=== PATIENT | female | born 2000 | race Caucasian/White ===

== ENCOUNTER 2022-07-02 02:15 | Emergency (ER) | payer MEDICAID, SELFPAY ==
[2022-07-02 02:20] VITALS: BP 143/56; PULSE 118; RESP 17; TEMP 36.9; O2SAT 98; BMI 29.7
[2022-07-02 02:23] VITALS: BMI 25.0
--- NOTE | 2022-07-02 02:25 | CT_ITS ---
PROCEDURE INFORMATION: Exam: CT Abdomen And Pelvis With Contrast Exam date and time: 07/02/2022 3:29 AM Age: 22 years old Clinical indication: Fever and nausea and vomiting; Abdominal pain; Localized; Right; Additional info: R abd pain w/ fever, nausea and vomiting TECHNIQUE: Imaging protocol: Computed tomography of the abdomen and pelvis with contrast. Radiation optimization: All CT scans at this facility use at least one of these dose optimization techniques: automated exposure control; mA and/or kV adjustment per patient size (includes targeted exams where dose is matched to clinical indication); or iterative reconstruction. Contrast material: ISOVUE; Contrast volume: 75 ml; Contrast route: IV; COMPARISON: No relevant prior studies available. FINDINGS: Liver: Normal. No mass. Gallbladder and bile ducts: Normal. No calcified stones. No ductal dilation. Pancreas: Normal. No ductal dilation. Spleen: Normal. No splenomegaly. Adrenal glands: Normal. No mass. Kidneys and ureters: There is patchy enhancement of the right kidney, this is seen most prominently anteriorly in the lower pole. Some perinephric edema is noted. There is moderate right-sided hydronephrosis and enhancement of the urothelium is seen in the collecting system and proximal ureter. No stones are identified. Stomach and bowel: Unremarkable. No obstruction. No mucosal thickening. Appendix: No evidence of appendicitis. Intraperitoneal space: Unremarkable. No free air. No significant fluid collection. Vasculature: Unremarkable. No abdominal aortic aneurysm. Lymph nodes: Unremarkable. No enlarged lymph nodes. Urinary bladder: Unremarkable as visualized. Reproductive: Unremarkable as visualized. Bones/joints: Unremarkable. No acute fracture. Soft tissues: Unremarkable. IMPRESSION: Patchy right renal enhancement with hydronephrosis and urothelial enhancement all suggestive of pyelonephritis. No renal stones identified.
[2022-07-02 02:31] VITALS: BP 120/76; PULSE 113; O2SAT 98
--- NOTE | 2022-07-02 02:45 | PC.NURSE ---
PT DENIES SMOKING, DRUG ABUSE, ETOH USE. PT DENIES HAVING ANY MEDICAL PROBLEMS OR ANY SURG. PT REPORTS ONE NORMAL THAT RESULTED IN A LIVE .
[2022-07-02 02:50] LABS: Coronavirus 19, PCR Not Detected (NotDetected); Influenza A, PCR Not Detected (NotDetected); Influenza B, PCR Not Detected (NotDetected); Microscopic, Urine URINE MICROSCOPIC (MICROSCOPIC)
[2022-07-02 02:58] LABS: Chloride 104 mmol/L (98-107); Potassium 3.3 mmoL/L (3.5-5.1); Sodium 138 mmol/L (136-145)
[2022-07-02 02:59] LABS: Amylase 51 U/L (30-110); Basophils # 0.1 K/mm3 (0-0.2); Basophils % 0.6 % (0.1-2.0); Eosinophils # 0.2 K/mm3 (0.0-0.4); Eosinophils % 1.1 % (0.1-12.0); Hematocrit 40.5 % (37.0-47.0); Hemoglobin 12.7 g/dL (12.2-16.2); Lymphocytes # 2.8 K/mm3 (0.7-4.5); Mean Corpuscular HGB Conc 31.4 g/dL (31.8-35.4); Mean Corpuscular Hemoglobin 27.6 pg (27.0-31.2); Mean Platelet Volume 8.2 fl (7.4-10.4); Monocytes # 1.2 K/mm3 (0.1-1.0); Monocytes % 6.2 % (1.7-9.3); Neutrophils # 15.3 K/mm3 (1.8-7.8); Neutrophils % 78.1 % (37.0-80.0); Platelet Count 313 K/mm3 (142-424); Red Cell Distribution Width 14.9 % (11.5-17.5); White Blood Count 19.6 K/mm3 (4.5-13.0)
[2022-07-02 03:00] VITALS: BP 113/72; PULSE 98; O2SAT 99
[2022-07-02 03:01] LABS: Alanine Aminotransferase 27 U/L (12-78); Albumin Level 4.2 g/dl (3.5-5.0); Albumin/Globulin Ratio 1.2 (1.1-1.8); Alkaline Phosphatase 107 U/L (38-126); Anion Gap 13.3 mEq/L (5-15); Aspartate Amino Transferase 31 U/L (14-36); Bilirubin,Total 0.3 mg/dl (0.2-1.3); Blood Urea Nitrogen 9 mg/dl (7-17); Calcium 9.2 mg/dl (8.4-10.2); Carbon Dioxide 24 mmol/L (22.0-30.0); Creatinine Clearance Estimated 161 mL/min (50-200); Estimated Glomerular Filt Rate 127 ml/min (>60); GFR (African American) 154 ML/MIN (>60); Globulin 3.5 g/dL (1.3-3.2); Glucose 132 mg/dl (74-100); Lactic Acid 1.4 mmol/L (0.7-2.1); Lipase 29 U/L (23-300); Total Protein,Serum 7.7 g/dl (6.3-8.2)
[2022-07-02 03:04] LABS: MANUAL DIFFERENTIAL MANUAL DIFFERENTIAL (MANUAL DIFF)
[2022-07-02 03:09] LABS: Bilirubin,Urine Negative (Negative); Blood, Urine TRACE-I (Negative); Color,Urine YELLOW (Yellow); Glucose,Urine (UA) Negative (Negative); Ketones,Urine Negative (Negative); Leukocyte Esterase,Urine 3+ (Negative); Nitrate,Urine Negative (Negative); Protein,Urine Negative (Negative)
[2022-07-02 03:20] LABS: C-Reactive Protein 366.2 mg/L (0-4)
[2022-07-02 03:21] LABS: Appearance,Urine Cloudy (Clear)
[2022-07-02 03:22] LABS: Urine Pregnancy, HCG Qual. Negative (Negative)
--- NOTE | 2022-07-02 03:28 | PC.NURSE ---
test has resulted and radiology notified
[2022-07-02 03:30] VITALS: BP 106/58; PULSE 93; O2SAT 100
[2022-07-02 03:32] LABS: Bacteria,Urine 3+ /lpf; WBC,Urine TNTC #/hpf (0-3)
[2022-07-02 03:44] LABS: Erythrocyte Sedimentation Rate 44 mm/hr (0-20)
[2022-07-02 03:48] LABS: Eosinophils % 2 % (0-3); Lymphocytes % 13 % (10-50); Monocytes % 5 % (2-9); Neutrophils % 80 % (42-76); Platelet Estimate Normal; RBC Morphology Normal; Total Cells Counted 100
[2022-07-02 04:01] VITALS: BP 119/88; PULSE 81; O2SAT 98
--- NOTE | 2022-07-02 04:51 | HMH.EDABDPAI ---
Discharge Plan Disposition Patient Disposition: Home, Self-Care Prescriptions Prescriptions: New ondansetron HCl 4 mg Tablet 4 mg PO Q8H PRN (Reason: Nausea) Qty: 12 0RF levofloxacin 500 mg tablet 500 mg PO DAILY Qty: 7 0RF Referrals Follow up/Referrals: Provider,Referral, MD [Primary Care Provider] - See instructions Clinical Impressions Clinical Impression: UTI (urinary tract infection), Pyelonephritis, SIRS (systemic inflammatory response syndrome) Instructions Patient Instructions: DI for Urinary Tract Infection (UTI) Discharge ED Provider: Yuri Carroll Abdominal Pain HPI General Chief Complaint: Abdominal Pain Stated Complaint: Right side abdomen pain, fever, chills, vomiting Time Seen by Provider: 07/02/22 04:51 Mode of Arrival: Ambulatory Source of Information: Patient, Spouse and Medical Record Limitations: No Limitations Description of Symptoms (Recalled from ER Triage Doc. by RN): PT REPORTS NAUSEA AND VOMITING WITH SLIGHT FEVER AND RIGHT LOWER ABDOMINAL QUADRANT PAIN X 3 DAYS. PT REPORTS FEVER HAS RESOLVED TODAY BUT SHE CONTINUES TO HAVE NAUSEA, VOMITING AND PAIN History of Present Illness HPI narrative: rt sided abd and back pain with nausea over the last 3 days complaint: abdominal pain Onset (ago): day(s) Consistency: constant Location: RLQ Severity: moderate Quality: aching Associated symptoms: denies other symptoms Related Data Previous Rx's Medication Instructions Recorded levofloxacin 500 mg tablet 500 mg PO DAILY #7 tabs 07/02/22 ondansetron HCl 4 mg tablet 4 mg PO Q8H PRN Nausea #12 tabs 07/02/22 Allergies Allergy/AdvReac Type Severity Reaction Status Date / Time No Known Allergies Allergy Verified 07/02/22 02:23 PFSH PFS Social History Smoking Status: Never smoker alcohol intake: never current occupational status: unemployed Travel in the last 8 weeks: None ROS Obtained: Yes All systems reviewed & no additional complaints except as documented Physical Exam General General appearance: alert Head Head exam: normocephalic Eye Eye exam: Present PERRL and EOMI ENT ENT exam: Present mucous membranes moist Neck Neck exam: Present trachea midline Respiratory Respiratory exam: Present normal lung sounds bilaterally; Absent respiratory distress Cardiovascular Cardiovascular exam: Present regular rate Abdominal Exam Abdominal exam: Present soft and tenderness; Absent guarding or rebound Abdominal tenderness: Present RLQ and moderate Extremities Exam Extremities exam: Present full ROM Back Exam Back exam: Present CVA tenderness (R) Neurological Exam Neurological exam: Present alert, oriented X3 and CN II-XII intact Psychiatric Psychiatric exam: Present normal affect Skin Skin exam: Absent rash Medical Decision Making Medical Records Medical records reviewed: Yes I reviewed the patient's medical records. Melo Inquiry Pt receiving controlled substance: No Vital Signs: 07/02/22 02:20 07/02/22 02:31 07/02/22 03:00 Temperature 98.4 F Temperature Source Oral Pulse Rate 113 H 98 H Pulse Rate [Left Radial] 118 H Respiratory Rate 17 Blood Pressure 120/76 113/72 Blood Pressure [Left Arm] 143/56 H Blood Pressure Mean 88 84 Blood Pressure Mean [Left Arm] 85 Blood Pressure Source [Left Arm] Automatic Cuff Blood Pressure Position [Left Arm] Sitting 02 Sat by Pulse Oximetry 98 98 99 Oxygen Delivery Method Room Air 07/02/22 03:30 07/02/22 04:01 Temperature Temperature Source Pulse Rate 93 H 81 Pulse Rate [Left Radial] Respiratory Rate Blood Pressure 106/58 L 119/88 Blood Pressure [Left Arm] Blood Pressure Mean 74 98 Blood Pressure Mean [Left Arm] Blood Pressure Source [Left Arm] Blood Pressure Position [Left Arm] 02 Sat by Pulse Oximetry 100 98 Oxygen Delivery Method Lab Data Lab results reviewed: Yes I reviewed the patient's lab results. Lab Results 07/02/22 02:33: ESR 44 H
[2022-07-02 05:12] VITALS: BP 106/67; PULSE 80; RESP 18; TEMP 37.1; O2SAT 100
== END 2022-07-02 05:25 | disposition home or self-care (01) ==
PROVIDERS: Emergency Provider Emergency Medicine
DX: N12 Tubulo-interstitial nephritis, not specified as acute or chronic (principal); M54.9 Dorsalgia, unspecified; R11.2 Nausea with vomiting, unspecified; Z20.822 Contact with and (suspected) exposure to COVID-19
CPT/HCPCS: 74177; 80053; 81001; 81025; 82150; 83605; 83690; 84145; 85007; 85025; 85651; 86140; 87086; 87088; 87186; 96361; 96374; 96375; 99285; C9803; J0696; J2405; Q9967; U0003; U0005

== ENCOUNTER 2022-08-03 22:18 | Emergency (ER) | payer OTHER, SELFPAY ==
[2022-08-03 22:36] VITALS: BP 142/86; PULSE 71; RESP 18; TEMP 36.7; O2SAT 100; BMI 29.7
[2022-08-03 22:39] VITALS: BMI 29.7
--- NOTE | 2022-08-03 22:41 | CT_ITS ---
PROCEDURE INFORMATION: Exam: CT Abdomen And Pelvis With Contrast Exam date and time: 08/03/2022 10:57 PM Age: 22 years old Clinical indication: Abdominal pain; Localized; Lower; Additional info: Lower quadrant pain TECHNIQUE: Imaging protocol: Computed tomography of the abdomen and pelvis with contrast. Radiation optimization: All CT scans at this facility use at least one of these dose optimization techniques: automated exposure control; mA and/or kV adjustment per patient size (includes targeted exams where dose is matched to clinical indication); or iterative reconstruction. Contrast material: ISOVUE; Contrast volume: 75 ml; Contrast route: IV; COMPARISON: CT ABDOMEN PELVIS W CON 07/02/2022 3:29 AM FINDINGS: Lungs: Scarring in the anterior aspect of the right middle lobe. Liver: Normal. No mass. Gallbladder and bile ducts: Normal. No calcified stones. No ductal dilation. Pancreas: Normal. No ductal dilation. Spleen: Normal. No splenomegaly. Adrenal glands: Normal. No mass. Kidneys and ureters: Normal. No hydronephrosis. Stomach and bowel: See Reproductive finding. Appendix: Appendix appears normal. Intraperitoneal space: No evidence of free fluid, free air, or gastrointestinal obstruction. Vasculature: Unremarkable. No abdominal aortic aneurysm. Lymph nodes: Unremarkable. No enlarged lymph nodes. Urinary bladder: Unremarkable as visualized. Reproductive: There may be an involuting cyst in the left ovary measuring approximately 1.5 cm. This could be substance within the distal small bowel within the pelvis. Bones/joints: Unremarkable. No acute fracture. Soft tissues: Unremarkable. IMPRESSION: 1. There may be an involuting cyst in the left ovary measuring approximately 1.5 cm. This could be substance within the distal small bowel within the pelvis. Follow-up pelvic ultrasound. 2. Appendix appears normal. 3. No evidence of free fluid, free air, or gastrointestinal obstruction. 4. Scarring in the anterior aspect of the right middle lobe.
[2022-08-03 22:46] LABS: Microscopic, Urine URINE MICROSCOPIC (MICROSCOPIC)
[2022-08-03 22:48] LABS: Basophils # 0.2 K/mm3 (0-0.2); Basophils % 1.3 % (0.1-2.0); Eosinophils # 0.9 K/mm3 (0.0-0.4); Eosinophils % 6.7 % (0.1-12.0); Hematocrit 42.9 % (37.0-47.0); Hemoglobin 13.4 g/dL (12.2-16.2); Lymphocytes # 4.7 K/mm3 (0.7-4.5); Lymphocytes % 34.7 % (10-50); Mean Corpuscular HGB Conc 31.4 g/dL (31.8-35.4); Mean Corpuscular Volume 89.4 fl (81-99); Monocytes # 0.5 K/mm3 (0.1-1.0); Monocytes % 3.6 % (1.7-9.3); Neutrophils # 7.4 K/mm3 (1.8-7.8); Neutrophils % 53.8 % (37.0-80.0); Platelet Count 337 K/mm3 (142-424); Red Blood Count 4.79 M/mm3 (4.20-5.40); Red Cell Distribution Width 15.3 % (11.5-17.5); White Blood Count 13.7 K/mm3 (4.5-13.0)
[2022-08-03 22:49] LABS: Bilirubin,Urine Negative (Negative); Blood, Urine Negative (Negative); Color,Urine YELLOW (Yellow); Glucose,Urine (UA) Negative (Negative); Ketones,Urine Negative (Negative); Leukocyte Esterase,Urine TRACE (Negative); Nitrate,Urine POSITIVE (Negative); Protein,Urine Negative (Negative); Specific Gravity, Urine 1.025 (1.005-1.030); Urine Pregnancy, HCG Qual. Negative (Negative); Urobilinogen,Urine 0.2 EU/dl (0.2)
[2022-08-03 22:57] LABS: Alanine Aminotransferase 17 U/L (12-78); Albumin Level 4.4 g/dl (3.5-5.0); Albumin/Globulin Ratio 1.4 (1.1-1.8); Alkaline Phosphatase 75 U/L (38-126); Anion Gap 14.9 mEq/L (5-15); Aspartate Amino Transferase 26 U/L (14-36); Blood Urea Nitrogen 17 mg/dl (7-17); Calcium 9.1 mg/dl (8.4-10.2); Carbon Dioxide 23 mmol/L (22.0-30.0); Chloride 104 mmol/L (98-107); Creatinine Clearance Estimated 174 mL/min (50-200); Estimated Glomerular Filt Rate 107 ml/min (>60); GFR (African American) 129 ML/MIN (>60); Globulin 3.2 g/dL (1.3-3.2); Glucose 107 mg/dl (74-100); Potassium 3.9 mmoL/L (3.5-5.1); Sodium 138 mmol/L (136-145); Total Protein,Serum 7.6 g/dl (6.3-8.2)
--- NOTE | 2022-08-03 22:57 | HMH.EDABDPAI ---
Discharge Plan Disposition Patient Disposition: Home, Self-Care Condition: Fair Prescriptions Prescriptions: New levofloxacin 500 mg tablet 500 mg PO DAILY Qty: 7 0RF Referrals Follow up/Referrals: Provider,Referral, [Primary Care Provider] - See instructions Clinical Impressions Clinical Impression: Abdominal pain, UTI (urinary tract infection) Instructions Patient Instructions: DI for Acute Abdominal Pain Discharge ED Provider: Yuri Carroll Abdominal Pain HPI <Yuri Carroll MD - Last Filed: 08/04/22 00:12> General Chief Complaint: Abdominal Pain Stated Complaint: Abd pain, left ear pain Time Seen by Provider: 08/03/22 22:57 Mode of Arrival: Ambulatory Source of Information: Patient and Medical Record Limitations: No Limitations Description of Symptoms (Recalled from ER Triage Doc. by RN): Pt reports lower quadrant abd pain that has started today. Pt says pain is stabbing and comes and goes. Pt says pain is similar to pain she had last month when she has a bad UTI. Pt endorses nausea but no vomiting or diarrhea. Denies fevers. History of Present Illness MD complaint: abdominal pain Onset (ago): hour(s) Consistency: intermittent Location: LLQ Severity: moderate Quality: stabbing Associated symptoms: denies other symptoms Related Data Previous Rx's Medication Instructions Recorded levofloxacin 500 mg tablet 500 mg PO DAILY #7 tabs 08/04/22 Allergies Allergy/AdvReac Type Severity Reaction Status Date / Time No Known Allergies Allergy Verified 07/02/22 02:23 <Alvaro Hannon APRN - Last Filed: 08/03/22 23:50> History of Present Illness HPI narrative: she reports lower quadrant abd pain that has started today. Pt says pain is stabbing and comes and goes. Pt says pain is similar to pain she had last month when she has a bad UTI. Pt endorses nausea but no vomiting or diarrhea. Denies fevers. PFSH <Yuri Carroll MD - Last Filed: 08/04/22 00:12> PFSH Social History Smoking Status: Current every day smoker alcohol intake: never current occupational status: unemployed Travel in the last 8 weeks: None <Alvaro Hannon APRN - Last Filed: 08/03/22 23:50> ROS Obtained: Yes All systems reviewed & no additional complaints except as documented Constitutional Constitutional: Denies chills, Denies fever(s) and Reports poor appetite ENT Ears, Nose, Mouth, and Throat: Denies dizziness and Denies sore throat Cardiovascular Cardiovascular: Denies dyspnea Respiratory Respiratory: Denies chest congestion, Denies cough and Denies dyspnea Gastrointestinal Gastrointestingal: Reports as per HPI Genitourinary Female Genitourinary: Denies difficulty voiding, Denies dysuria, Denies hematuria, Denies urinary frequency, Denies urinary incontinence, Denies urinary hesitancy and Denies urinary urgency Musculoskeletal Musculoskeletal: Denies arthralgias Integumentary/Breasts Skin/Breast: Denies rash Neurologic Neurologic: Denies dizziness <Alvaro Hannon APRN - Last Filed: 08/03/22 23:50> General General appearance: alert and in no apparent distress Head Head exam: atraumatic and normocephalic Eye Eye exam: Present normal appearance, PERRL and EOMI ENT ENT exam: Present normal exam, normal oropharynx, mucous membranes moist, TM's normal bilaterally and normal external ear exam Neck Neck exam: Present normal inspection, full ROM and trachea midline; Absent tenderness, meningismus or lymphadenopathy Chest Chest inspection: Present normal inspection and symmetric chest wall rise; Absent tenderness, rash or abscess Respiratory Respiratory exam: Present normal lung sounds bilaterally; Absent respiratory distress, wheezes or stridor Cardiovascular Cardiovascular exam: Present regular rate and normal rhythm; Absent irregular rhythm, systolic murmur, diastolic murmur or JVD Abdominal Exam Abdominal exam: Present soft and normal bowel sounds; Absent distention,
[2022-08-03 22:59] LABS: Appearance,Urine Slightly Cloudy (Clear)
[2022-08-03 23:00] LABS: Bacteria,Urine 2+ /lpf
[2022-08-03 23:02] LABS: C-Reactive Protein 2.8 mg/L (0-4)
[2022-08-03 23:03] LABS: Bilirubin,Total < 0.1 mg/dl (0.2-1.3)
--- NOTE | 2022-08-03 23:08 | PC.NURSE ---
BACK FROM CT
[2022-08-03 23:16] LABS: Procalcitonin 0.039 ng/mL (0.0-2.0)
[2022-08-03 23:20] LABS: Erythrocyte Sedimentation Rate 12 mm/hr (0-20)
[2022-08-03 23:30] VITALS: BP 142/86; PULSE 74; O2SAT 99
--- NOTE | 2022-08-03 23:33 | PC.NURSE ---
WARM BLANKET GIVEN FOR COMFORT.
[2022-08-04 00:26] VITALS: BP 115/64; PULSE 73; RESP 14; TEMP 36.6; O2SAT 98
== END 2022-08-04 00:27 | disposition home or self-care (01) ==
PROVIDERS: Emergency Provider Emergency Medicine
DX: N39.0 Urinary tract infection, site not specified (principal)
CPT/HCPCS: 74177; 80053; 81001; 81025; 84145; 85025; 85651; 86140; 87086; 87088; 87186; 96365; 96367; 96375; 99284; J0696; J2405; Q9967

== ENCOUNTER → 2022-09-03 15:08 | Outpatient (CLI) | payer OTHER, SELFPAY | PROVIDERS: Visit Provider Obstetrics & Gynecology | DX: N92.6 Irregular menstruation, unspecified (principal) | CPT/HCPCS: 36415; 84702 ==

== ENCOUNTER → 2022-09-08 09:44 | Outpatient (CLI) | payer OTHER, SELFPAY | PROVIDERS: Visit Provider Obstetrics & Gynecology | DX: Z34.90 Encounter for supervision of normal pregnancy, unspecified, unspecified trimester (principal) | CPT/HCPCS: 87086 ==

== ENCOUNTER → 2022-10-14 11:33 | Outpatient (CLI) | payer OTHER, SELFPAY ==
[2022-10-14 12:03] LABS: Basophils # 0.1 K/mm3 (0-0.2); Basophils % 0.6 % (0.1-2.0); Eosinophils # 0.2 K/mm3 (0.0-0.4); Eosinophils % 2.1 % (0.1-12.0); Hematocrit 42.1 % (37.0-47.0); Hemoglobin 13.8 g/dL (12.2-16.2); Lymphocytes # 2.8 K/mm3 (0.7-4.5); Mean Corpuscular HGB Conc 32.7 g/dL (31.8-35.4); Mean Corpuscular Hemoglobin 29.1 pg (27.0-31.2); Mean Corpuscular Volume 88.9 fl (81-99); Monocytes # 0.4 K/mm3 (0.1-1.0); Neutrophils # 6.3 K/mm3 (1.8-7.8); Neutrophils % 64.3 % (37.0-80.0); Platelet Count 292 K/mm3 (142-424); Red Blood Count 4.74 M/mm3 (4.20-5.40); Red Cell Distribution Width 13.4 % (11.5-17.5); White Blood Count 9.8 K/mm3 (4.5-13.0)
[2022-10-15 13:15] LABS: HIV Screen 4th Generation wRfx Non Reactive (Non Reactive); Rubella Antibodies, IgG 2.49 index (Immune >0.99)
[2022-11-01 19:53] LABS: Hepatitis B Surface Antigen NEGATIVE; Hepatitis C Antibody <0.1; Rapid Plasma Reagin Ab Titer NON REACTIVE
== END ==
PROVIDERS: Visit Provider Obstetrics & Gynecology
DX: Z34.90 Encounter for supervision of normal pregnancy, unspecified, unspecified trimester (principal)
CPT/HCPCS: 36415; 85025; 86592; 86703; 86762; 86850; 87340; 87380; G0432

== ENCOUNTER 2022-11-17 14:57 | Emergency (ER) | payer BC, OTHER, SELFPAY ==
--- NOTE | 2022-11-17 14:40 | US_ITS ---
FINAL REPORT CLINICAL HISTORY: vaginal bleeding FINDINGS: TRANSABDOMINAL ULTRASOUND, The uterus is anteverted and anteflexed. There is a gestation within the endometrial cavity. Cardiac activity is not able to be obtained. The cervix is closed. Growth parameters are as follows: BPD: 2.3 cm consistent with 13 weeks 6 days. Head circumference: 8.5 cm consistent with 13 weeks 5 days. Abdominal circumference: 8.7 cm consistent with 15 weeks 0 days. Femur length: 1.1 cm consistent with 13 weeks 2 days. Estimated gestational age: 18 weeks 1 days. IMPRESSION: Intrauterine gestation without cardiac activity, concerning for intrauterine demise. Reviewed, Interpreted and Dictated by Meri Saeed MD Transcribed by Adeline Freedman Authenticated and [facility]
--- NOTE | 2022-11-17 14:54 | PC.NURSE ---
Radiology aware of US order, spoke to Dorita
[2022-11-17 14:57] VITALS: BP 114/69; PULSE 118; RESP 16; TEMP 36.7; O2SAT 98; BMI 25.8
[2022-11-17 15:00] VITALS: BP 122/86; PULSE 80
[2022-11-17 15:02] LABS: Microscopic, Urine URINE MICROSCOPIC (MICROSCOPIC)
[2022-11-17 15:04] LABS: Appearance,Urine CLEAR (Clear); Bilirubin,Urine Negative (Negative); Blood, Urine Negative (Negative); Color,Urine YELLOW (Yellow); Glucose,Urine (UA) Negative (Negative); Ketones,Urine Negative (Negative); Leukocyte Esterase,Urine 2+ (Negative); Nitrate,Urine Negative (Negative); PH,Urine 7.5 (5.0-8.5); Protein,Urine Negative (Negative); Urobilinogen,Urine 0.2 EU/dl (0.2)
--- NOTE | 2022-11-17 15:06 | PC.NURSE ---
pt to radiology via wc with radiocommunications technician
[2022-11-17 15:18] LABS: Basophils # 0.1 K/mm3 (0-0.2); Basophils % 0.9 % (0.1-2.0); Eosinophils # 0.4 K/mm3 (0.0-0.4); Hematocrit 43.5 % (37.0-47.0); Hemoglobin 14.2 g/dL (12.2-16.2); Lymphocytes # 3.2 K/mm3 (0.7-4.5); Mean Corpuscular HGB Conc 32.7 g/dL (31.8-35.4); Mean Corpuscular Hemoglobin 29.6 pg (27.0-31.2); Mean Corpuscular Volume 90.5 fl (81-99); Mean Platelet Volume 8.2 fl (7.4-10.4); Monocytes # 0.4 K/mm3 (0.1-1.0); Monocytes % 3.5 % (1.7-9.3); Neutrophils # 7.8 K/mm3 (1.8-7.8); Neutrophils % 65.6 % (37.0-80.0); Platelet Count 288 K/mm3 (142-424); Red Blood Count 4.81 M/mm3 (4.20-5.40); White Blood Count 11.9 K/mm3 (4.5-13.0)
[2022-11-17 15:23] LABS: Chloride 110 mmol/L (98-107); Potassium 3.6 mmoL/L (3.5-5.1); Sodium 142 mmol/L (136-145)
[2022-11-17 15:26] LABS: Alanine Aminotransferase 14 U/L (12-78); Albumin Level 4.1 g/dl (3.5-5.0); Albumin/Globulin Ratio 1.2 (1.1-1.8); Alkaline Phosphatase 73 U/L (38-126); Anion Gap 10.6 mEq/L (5-15); Aspartate Amino Transferase 25 U/L (14-36); Bilirubin,Total 0.4 mg/dl (0.2-1.3); Blood Urea Nitrogen 5 mg/dl (7-17); Carbon Dioxide 25 mmol/L (22.0-30.0); Creatinine Clearance Estimated 218 mL/min (50-200); Estimated Glomerular Filt Rate 157 ml/min (>60); GFR (African American) 190 ML/MIN (>60); Globulin 3.5 g/dL (1.3-3.2); Total Protein,Serum 7.6 g/dl (6.3-8.2)
[2022-11-17 15:27] LABS: Calcium 8.9 mg/dl (8.4-10.2); Glucose 87 mg/dl (74-100)
[2022-11-17 15:37] LABS: Bacteria,Urine 1+ /lpf; RBC,Urine Occasional #/hpf (0-3)
--- NOTE | 2022-11-17 15:42 | PC.NURSE ---
pt back from US
--- NOTE | 2022-11-17 16:00 | PC.NURSE ---
lab will be preparing osmanyam and sending it down for pt
--- NOTE | 2022-11-17 16:12 | PC.NURSE ---
assisted MD with pelvic exam, pt tolerated well
--- NOTE | 2022-11-17 17:56 | HMH.EDGENADL ---
Discharge Plan Disposition Patient Disposition: Home, Self-Care Prescriptions Prescriptions: No Action promethazine 25 mg tablet 25 mg PO Q8HP PRN (Reason: nausea and vomiting) Qty: 20 1RF PNV-DHA 27 mg iron-1 mg -300 mg capsule 1 cap PO DAILY Qty: 90 3RF sertraline 25 mg tablet 25 mg PO DAILY Qty: 30 2RF ondansetron 4 mg tablet,disintegrating 4 mg PO Q8H PRN (Reason: nausea and vomiting) Qty: 20 2RF Referrals Follow up/Referrals: Provider,Referral, MD [Primary Care Provider] - See instructions Activity Restrictions/Add. Instructions Additional Instructions/Restrictions: follow up with Dr. Miles 11/18/21814. Clinical Impressions Clinical Impression: demise Discharge ED Provider: Gerardo Machado General Adult HPI General Chief complaint: Vaginal Bleeding Stated complaint: /vaginal bleeding Time Seen by Provider: 11/17/22 15:00 Mode of Arrival: EMS Source of Information: Patient Limitations: No Limitations Description of Symptoms (Recalled from ER Triage Doc. by RN): pt reports heavy bleeding that began this am at 1130. pt reports hx of stillbirth. pt follows with dr miles. pt is 18 weeks . History of Present Illness HPI narrative: Patient is a -1-1-1 with a past medical history of stillbirth at 28 weeks who presents with concern for heavy vaginal bleeding. She says that she is approximately 18 weeks and today started to have some heavy vaginal bleeding. She said that it was some clots that stopped on their own. She says that with her history of stillbirth she wanted to come in for evaluation. She denies any current cramping. Denies any fever or chills. Denies any abdominal pain. She says that her blood type is negative and she has received RhoGAM in the past. Related Data Previous Rx's Medication Instructions Recorded multivitamin no.47-iron fum 27 1 cap PO DAILY #90 caps 09/08/22 mg-folate no.1 1 mg-dha 300 mg capsule (PNV-DHA) promethazine 25 mg tablet 25 mg PO Q8HP PRN nausea and 09/08/22 vomiting #20 tabs ondansetron 4 mg disintegrating 4 mg PO Q8H PRN nausea and 10/07/22 tablet vomiting #20 tabs sertraline 25 mg tablet 25 mg PO DAILY #30 tabs 10/07/22 Allergies Allergy/AdvReac Type Severity Reaction Status Date / Time No Known Allergies Allergy Verified 10/07/22 11:22 [facility] Disclaimer: The information contained in this section may have been updated after the patient was seen, as this information can be updated by other users. Medical History Anxiety Depression History of gestational hypertension History of miscarriage, currently History of recurrent UTI (urinary tract infection) History of stillbirth Nausea and vomiting Pyelonephritis Rh negative state in antepartum period SIRS (systemic inflammatory response syndrome) Tobacco use Surgical History H/O knee surgery Social History Smoking Status: Current every day smoker alcohol intake: never current occupational status: unemployed Travel in the last 8 weeks: None ROS Obtained: Yes All systems reviewed & no additional complaints except as documented A 14 point review of system was obtained and otherwise negative except per HPI Physical Exam General General appearance: alert and in no apparent distress Head Head exam: atraumatic, normocephalic and normal inspection Eye Eye exam: Present normal appearance, PERRL and EOMI ENT ENT exam: Present normal exam, normal oropharynx, mucous membranes moist and normal external ear exam Neck Neck exam: Present normal inspection, full ROM and trachea midline; Absent meningismus or lymphadenopathy Chest Chest inspection: Present normal inspection and symmetric chest wall rise; Absent tenderness Respiratory Respiratory exam: Present normal lung sounds bilaterally; Absent respira
[2022-11-17 18:09] VITALS: BP 140/88; PULSE 81; RESP 16; TEMP 36.6
== END 2022-11-17 18:16 | disposition home or self-care (01) ==
PROVIDERS: Emergency Provider Student in an Organized Health Care Education/Training Program
DX: O02.1 Missed abortion (principal); Z3A.18 18 weeks gestation of pregnancy
CPT/HCPCS: 76805; 80053; 81001; 85025; 87086; 87088; 87186; 96372; 99285; J2790

== ENCOUNTER 2022-11-22 11:54 | Inpatient (IN) | payer OTHER, SELFPAY ==
[2022-11-22 12:05] VITALS: BMI 32.8
[2022-11-22 12:48] LABS: Basophils % 0.5 % (0.1-2.0); Eosinophils # 0.3 K/mm3 (0.0-0.4); Eosinophils % 3.2 % (0.1-12.0); Hematocrit 39.8 % (37.0-47.0); Hemoglobin 13.5 g/dL (12.2-16.2); Mean Corpuscular Hemoglobin 29.8 pg (27.0-31.2); Mean Corpuscular Volume 87.5 fl (81-99); Mean Platelet Volume 7.9 fl (7.4-10.4); Monocytes # 0.3 K/mm3 (0.1-1.0); Monocytes % 3.4 % (1.7-9.3); Neutrophils # 5.7 K/mm3 (1.8-7.8); Neutrophils % 61.1 % (37.0-80.0); Platelet Count 248 K/mm3 (142-424); Red Blood Count 4.55 M/mm3 (4.20-5.40); Red Cell Distribution Width 13.2 % (11.5-17.5); White Blood Count 9.3 K/mm3 (4.5-13.0)
--- NOTE | 2022-11-22 12:59 | HMH.PHAINT1 ---
Pharmacy Intervention Comments: MEDICATION RECONCILIATION COMPLETED ON PATIENT USING EXTERNAL FILL HISTORY FROM PHARMACY. -KRYSTIN ROMANO, AND
[2022-11-22 13:15] VITALS: BP 137/92; PULSE 81; RESP 18; TEMP 37; O2SAT 99; BMI 32.9
--- NOTE | 2022-11-22 13:48 | EXP.OB.APHP ---
OB - H&P: HPI Antepartum History of Present Illness Chief complaint: Second trimester spontaneous History of present illness: Ms Marianela Jules is a 22 yo at 18w6d, by LMP and confirmed by first trimester ultrasound, who present to [facility] Labor and Delivery for scheduled induction of labor secondary to second trimester . Patient states she started bleeding on 11/17/22. She states she bled all day and went to the ED. Ultrasound demonstrated an intrauterine baby without cardiac activity measuring approximately 14 weeks. She states she stopped bleeding on 11/18/22 and then started again on 11/19/22 with light pink bleeding every day. She is experiencing light pink bleeding today. She admits to cramping. Denies fever/chills, chest pain and shortness of breath. She received Rhogam in the ED. She has history of first trimester SAB, stillbirth at 28 weeks and 37 week with live baby. History of Present Criteria for establishing EDC:: LMP confirmed by 1st trimester US care: limited care Ultrasounds: normal 1st trimester US Medical complications: none Labs Blood type: A (-) negative Rubella: immune RPR/VDRL: nonreactive HBsAG: negative [facility] Disclaimer: The information contained in this section may have been updated after the patient was seen, as this information can be updated by other users. Medical History Anxiety Depression History of gestational hypertension History of miscarriage, currently History of recurrent UTI (urinary tract infection) History of stillbirth Nausea and vomiting with 18 completed weeks gestation Pyelonephritis Rh negative state in antepartum period SIRS (systemic inflammatory response syndrome) Spontaneous in second trimester Tobacco use Surgical History H/O knee surgery Family History Other Family history of abdominal aortic aneurysm Social History Smoking Status: Current every day smoker alcohol intake: never current occupational status: unemployed Travel in the last 8 weeks: None Review of Systems Review of Systems Review of systems:: pertinent systems reviewed and negative unless documented below *Gastrointestinal Gastrointestinal: Reports cramping *Genitourinary Genitourinary: Reports abnormal vaginal bleeding Meds Home Medications and Allergies Home Medications Medication Instructions Recorded Confirmed Type promethazine 25 mg tablet 25 mg PO Q8HP PRN nausea and 09/08/22 11/22/22 Rx vomiting #20 tabs multivitamin no.47-iron fum 27 1 cap PO DAILY Supplement 11/22/22 11/22/22 History mg-folate no.1 1 mg-dha 300 mg capsule (PNV-DHA) ondansetron 4 mg disintegrating 4 mg PO Q8HP PRN nausea and 11/22/22 11/22/22 History tablet vomiting sertraline 25 mg tablet 25 mg PO DAILY MOOD 11/22/22 11/22/22 History New Prescriptions to Start Prescriptions: Allergies Allergy/AdvReac Type Severity Reaction Status Date / Time No Known Allergies Allergy Verified 10/07/22 11:22 OB - H&P: Exam Physical Exam Vital signs: Temp Pulse Resp BP Pulse Ox 98.6 F 81 18 137/92 H 99 11/22/22 13:15 11/22/22 13:15 11/22/22 13:15 11/22/22 13:15 11/22/22 13:15 Constitutional no acute distress and cooperative Routine HEENT Exam Head: Present normocephalic and atraumatic Eye: Absent conjunctivae pink ENT: Present mucous membranes moist Routine Neck Exam Present full ROM Routine Respiratory Exam Present CTA bilaterally and normal respiratory effort Routine Cardiovascular Exam Present RRR Routine Abdominal Exam Present soft (gravid); Absent tenderness or distended Routine Rectal Exam Patient deferred: visual exam Routine Exam External: Present normal urethra appearance Routine Extremities Exam Present f
[2022-11-22 13:57] LABS: Coronavirus 19, PCR Not Detected (NotDetected); Influenza A, PCR Not Detected (NotDetected); Influenza B, PCR Not Detected (NotDetected)
[2022-11-22 13:57] LABS: Microscopic, Urine URINE MICROSCOPIC (MICROSCOPIC)
[2022-11-22 13:58] LABS: Appearance,Urine CLEAR (Clear); Bilirubin,Urine Negative (Negative); Blood, Urine 3+ (Negative); Color,Urine YELLOW (Yellow); Glucose,Urine (UA) Negative (Negative); Ketones,Urine Negative (Negative); Leukocyte Esterase,Urine 3+ (Negative); Nitrate,Urine Negative (Negative); Protein,Urine Negative (Negative); Urobilinogen,Urine 0.2 EU/dl (0.2)
[2022-11-22 14:11] LABS: Benzodiazepines Screen,Urine Negative ng/ml (<200)
[2022-11-22 14:12] LABS: Amphetamine/Metha Screen,Urine Negative ng/ml (<1000); Barbiturates Screen,Urine Negative ng/ml (<200)
[2022-11-22 14:13] LABS: Cannabinoid Screen,Urine Negative ng/ml (<50); Cocaine Screen,Urine Negative ng/ml (<300)
[2022-11-22 14:14] LABS: Methadone Screen,Urine Negative ng/ml (<300)
[2022-11-22 14:15] LABS: Opiate Screen,Urine Negative ng/ml (<300); Phencyclidine Screen,Urine Negative ng/ml (<25)
[2022-11-22 14:17] LABS: Bacteria,Urine 4+ /lpf
[2022-11-22 14:52] VITALS: RESP 18
--- NOTE | 2022-11-22 16:21 | EXP.DN ---
Delivery Note Delivery Date:: 11/22/22 Delivery Time:: 15:15 Was labor medically induced?: Yes Induction method: per misoprostol protocol Gestational age (weeks): 18 delivered prior to 39 weeks?: Yes Justification for early elective delivery:: Demise (second trimester spontaneous ) Infant Gender: Male at 1 minute: 0 at 5 minutes: 0 Delivery Procedure:: Patient received 1 dose of 800 mcg of Cytotec at 1245. Placenta and intact gestational sac containing baby and fluid delivered spontaneously as single unit at 1515. Placenta was small but appeared normal. Amniotic sac was opened, dark amniotic fluid noted. No odor appreciated. Baby with no signs of life. No gross abnormalities noted. No sloughing of skin. male baby measuring 12.7 cm and weighing 1.3 oz EBL 10 mL Placental cultures ordered Placental Delivery Description: Spontaneous
--- NOTE | 2022-11-22 16:35 | EXP.DC.SUM ---
General Admission date:: 11/22/22 Discharge date: 11/22/22 HPI HPI HPI: Ms Marianela Jules is a 22 yo at 18w6d, by LMP and confirmed by first trimester ultrasound, who presented to [facility] Labor and Delivery for scheduled induction of labor secondary to second trimester . Patient states she started bleeding on 11/17/22. She states she bled all day and went to the ED. Ultrasound demonstrated an intrauterine baby without cardiac activity measuring approximately 14 weeks. She states she stopped bleeding on 11/18/22 and then started again on 11/19/22 with light pink bleeding every day. She is experiencing light pink bleeding today. She admits to cramping. Denies fever/chills, chest pain and shortness of breath. She received Rhogam in the ED. She has history of first trimester SAB, stillbirth at 28 weeks and 37 week with live baby. Hospital Course Hospital Course Hospital Course: Ms Marianela Jules is a 22 yo at 18w6d, by LMP and confirmed by first trimester ultrasound, who present to [facility] Labor and Delivery for scheduled induction of labor secondary to second trimester . Patient states she started bleeding on 11/17/22. She states she bled all day and went to the ED. Ultrasound demonstrated an intrauterine baby without cardiac activity measuring approximately 14 weeks.? She underwent induction of labor with Cytotec on 11/22/22 at 1245. She had a spontaneous vaginal delivery at 1515 with placenta, intact gestational sac, and baby delivered altogether. EBL 10 cc. Placental cultures were obtained. Baby appeared to have no gross abnormality. Vital signs were stable, afebrile. Patient requested to go home to be with her boyfriend and daughter. Depo Provera to be given before discharge. Instructed patient to follow-up in the office in 2 weeks and no intercourse for 6 weeks. She voiced understanding. Plan to discharge to home this evening if bleeding is within normal limits, vitals and CBC are within normal limits. Exam Data for Last 24 hours Vital signs and Labs for Last 24 Hours: Temp Pulse Resp BP Pulse Ox 98.6 F 81 18 137/92 H 99 11/22/22 13:15 11/22/22 13:15 11/22/22 14:52 11/22/22 13:15 11/22/22 13:15 Laboratory Results - last 24 hr 11/22/22 12:15: Urine Color Yellow, Urine Appearance Clear, Urine pH 7.0, Ur Specific [place] 1.010, Urine Protein Negative, Urine Glucose (UA) Negative, Urine Ketones Negative, Urine Blood 3+, Urine Nitrate Negative, Urine Bilirubin Negative, Urine Urobilinogen 0.2, Ur Leukocyte Esterase 3+ A, Urine RBC 3-5, Urine WBC 10-20, Ur Squamous Epith Cells 5-10, Urine Bacteria 4+ 11/22/22 12:15: Urine Opiates Screen Negative, Urine Methadone Screen Negative, Ur Barbituates Screen Negative, Ur Phencyclidine Scrn Negative, Ur Amphetamines Screen Negative, U Benzodiazepines Scrn Negative, Urine Cocaine Screen Negative, U Marijuana (THC) Screen Negative 11/22/22 12:20: SARS-CoV-2 (PCR) Not detected, Influenza A Untype (PCR) Not detected, Influenza Type B (PCR) Not detected 11/22/22 12:30: WBC 9.3, RBC 4.55, Hgb 13.5, Hct 39.8, MCV 87.5, MCH 29.8, MCHC 34.0, RDW 13.2, Plt Count 248, MPV 7.9, Neut % (Auto) 61.1, Lymph % (Auto) 32.0, Placer % (Auto) 3.4, Eos % (Auto) 3.2, Baso % (Auto) 0.5, Neut # (Auto) 5.7, Lymph # (Auto) 3.0, Placer # (Auto) 0.3, Eos # (Auto) 0.3, Baso # (Auto) 0.0 11/22/22 12:30: Blood Type A Negative, Antibody Screen Positive I & O for Last 24 hours: Intake & Output 11/19/22 11/20/22 11/21/22 11/22/22 23:59 23:59 23:59 23:59 Weight 210 lb Constitutional Constitutional: no acute distress *Routine HEENT Exam Head: Present normocephalic and atraumatic Eye: Absent conjunctivae pink ENT: Present mucous membranes moist *Routine Neck Exam Neck: Present full ROM *Routine Respiratory Exam Respiratory: Present CTA bilaterally and normal respiratory effort *Routine Cardiovascular Exam Cardiovascular: Present RRR *Routine Abdominal Exam Abdominal: Present soft and normoactive
[2022-11-22 20:13] LABS: Basophils # 0.1 K/mm3 (0-0.2); Basophils % 0.7 % (0.1-2.0); Eosinophils # 0.4 K/mm3 (0.0-0.4); Eosinophils % 3.2 % (0.1-12.0); Hematocrit 37.8 % (37.0-47.0); Hemoglobin 12.8 g/dL (12.2-16.2); Lymphocytes % 31.9 % (10-50); Mean Corpuscular HGB Conc 33.8 g/dL (31.8-35.4); Mean Corpuscular Hemoglobin 29.8 pg (27.0-31.2); Mean Corpuscular Volume 88.1 fl (81-99); Mean Platelet Volume 8.4 fl (7.4-10.4); Monocytes # 0.5 K/mm3 (0.1-1.0); Monocytes % 4.2 % (1.7-9.3); Neutrophils # 7.4 K/mm3 (1.8-7.8); Neutrophils % 59.9 % (37.0-80.0); Platelet Count 243 K/mm3 (142-424); Red Blood Count 4.29 M/mm3 (4.20-5.40); Red Cell Distribution Width 13.1 % (11.5-17.5); White Blood Count 12.4 K/mm3 (4.5-13.0)
== END 2022-11-22 20:33 | disposition home or self-care (01) | DRG 779 ==
PROVIDERS: Admitting Provider Obstetrics & Gynecology; Visit Provider Obstetrics & Gynecology
DX: O03.9 Complete or unspecified spontaneous abortion without complication (principal); Z3A.18 18 weeks gestation of pregnancy; F41.9 Anxiety disorder, unspecified; F32.A Depression, unspecified; Z87.59 Personal history of other complications of pregnancy, childbirth and the puerperium; F17.210 Nicotine dependence, cigarettes, uncomplicated
CPT/HCPCS: 59855; 36415; 80305; 81001; 85025; 86850; 86870; 87070; 87077; 87086; 87088; 87186; 87205; 94761; C9803; G0283; U0003; U0005

== ENCOUNTER 2023-09-19 22:47 | Emergency (ER) | payer BC, OTHER, SELFPAY ==
[2023-09-19 22:48] VITALS: BP 174/97; PULSE 83; RESP 18; TEMP 37.1; O2SAT 100; BMI 27.3
--- NOTE | 2023-09-19 22:48 | ECG_ITS ---
APPROVED REPORT Exam: Resting ECG HR:81 bpm ECG Measurements Heart Rate 81 AXES AZ 171 P 65 QRSd 86 QRS 89 QT 343 T 46 QTc 380 Conclusion SINUS RHYTHM Normal ECG UNCONFIRMED REPORT Electronically signed by : Saqib Gonzales MD 09/21/2023 17:13:33
--- NOTE | 2023-09-19 22:53 | XR_ITS ---
PROCEDURE INFORMATION: Exam: XR Chest Exam date and time: 09/19/2023 10:58 PM Age: 23 years old Clinical indication: Other: Palpitations TECHNIQUE: Imaging protocol: Radiologic exam of the chest. Views: 1 view. COMPARISON: CT ABDOMEN PELVIS W CON 08/03/2022 10:57 PM FINDINGS: Lungs: No evidence of acute pulmonary disease or infiltrates; lung solomon appear clear. Pleural spaces: No evidence of pleural effusion, pneumothorax, or pleural thickening in the visualized pleural spaces. Heart/Mediastinum: No evidence of mediastinal widening or cardiac silhouette enlargement; the mediastinum and heart appear within normal limits for contour and size. Bones/joints: No evidence of acute osseous abnormalities within the visualized portions of the thoracic spine and ribs. Osseous structures appear appropriate for patient age. IMPRESSION: Negative study. No acute cardiopulmonary abnormalities identified. Osseous structures within the visualized portions of the thoracic spine and ribs show no acute abnormalities and appear appropriate for patient age.
--- OUTSIDE RECORDS SUMMARY | 2023-09-19 22:57 | XMS_ITS | Continuity of Care Document ---
Author Name Unknown Organization [facility] Address [address] [place] [address] Phone Care Team Providers Care Brand Ambassador Name Role Phone Orville Silva PT Unavailable Unavailable Allergies, Adverse Reactions, Alerts Substance Reaction Status Criticality No Known Allergies Active No Inform ation Medications Medication Instructions Dosage Effective Dates (start - stop) Status Comments Percocet 5 mg-325 mg tablet take 1 by oral route every 4 - 6 hours as needed - Active Sx 10/06/18 promethazine 25 mg tablet take 1 tablet by oral route every 4 - 6 hours as needed 25 MG - Active Percocet 5 mg-325 mg tablet take 1 - 2 by oral route every 4 - 6 hours as needed 1-2 - Active sx 10/06/2018 Naprosyn 375 mg tablet take 1 tablet by oral route 2 times every day with food - Active Percocet 5 mg-325 mg tablet take 1 - 2 by oral route every 4 - 6 hours as needed 1-2 - Active promethazine 25 mg tablet take 1 tablet by oral route every 4 - 6 hours as needed 25 MG - Active
--- NOTE | 2023-09-19 22:58 | HMH.EDGENADL ---
Discharge Plan Disposition Patient Disposition: Home, Self-Care Prescriptions Prescriptions: New atenolol 25 mg tablet 25 mg PO DAILY Qty: 30 0RF No Action nitrofurantoin monohyd/m-cryst [Macrobid] 100 mg capsule 100 mg PO BID Qty: 14 0RF Rx Instructions: must administer with a meal/food sertraline 25 mg tablet See Rx Instructions .ROUTE .COMPLEX Qty: 90 0RF Dose Instruction: TAKE 1 TABLET BY MOUTH EVERY DAY Rx Instructions: TAKE 1 TABLET BY MOUTH EVERY DAY ibuprofen 400 mg Tablet 800 mg PO Q8HP PRN (Reason: Mild To Moderate Pain) Qty: 40 0RF Referrals Follow up/Referrals: Raheel Rodriguez MD [Staff Physician] - See instructions Provider,MD Meredith [Primary Care Provider] - See instructions Activity Restrictions/Add. Instructions Additional Instructions/Restrictions: Please follow-up with your primary care provider regarding your elevated thyroid levels. I have sent a prescription for atenolol, a beta-beena, which can help with symptoms related to hyperthyroidism. Monitor for side effects including bradycardia, weakness etc. Please wear Holter monitor for the next 2 days and call to follow-up with our cardiologists. Clinical Impressions Clinical Impression: Elevated serum free T4 level, Chest pain, Heart palpitations, Syncope Discharge ED Provider: Jose Manuel Small Adult HPI General Chief complaint: Chest Pain Stated complaint: stated medication makes her heart race Time Seen by Provider: 09/19/23 22:50 History of Present Illness HPI narrative: 23-year-old female, reported history of anxiety presents with palpitations chest pain starting this afternoon. She reports that she started a control patch 2 weeks ago. She has never previously been on control. She also reports that she was placed on Celexa recently, took it for exactly 1 week, stopping it on Tuesday, 4 days ago. She reports that the last couple of days she was taking the Celexa she had similar palpitations and chest pain. She reports no history of DVT or PE, no recent surgery or immobilization. No family cardiac history. Patient also reports some hot flashes and body aches. She reports that she passed out this evening around 8 PM, unsure how long she was out. Denies any trauma. Related Data Previous Rx's Medication Instructions Recorded ibuprofen 400 mg tablet 800 mg PO Q8HP PRN Mild To 11/22/22 Moderate Pain #40 tabs nitrofurantoin 100 mg PO BID #14 caps 11/24/22 monohydrate/macrocrystals 100 mg capsule (Macrobid) sertraline 25 mg tablet See Rx Instructions .Route 12/28/22 .COMPLEX #90 tabs atenolol 25 mg tablet 25 mg PO DAILY #30 tabs 09/20/23 Allergies Allergy/AdvReac Type Severity Reaction Status Date / Time No Known Allergies Allergy Verified 10/07/22 11:22 [facility] Disclaimer: The information contained in this section may have been updated after the patient was seen, as this information can be updated by other users. Medical History Anxiety Depression History of gestational hypertension History of miscarriage, currently History of recurrent UTI (urinary tract infection) History of stillbirth Nausea and vomiting with 18 completed weeks gestation Pyelonephritis Rh negative state in antepartum period SIRS (systemic inflammatory response syndrome) Spontaneous in second trimester Tobacco use Surgical History H/O knee surgery Family History Other Family history of abdominal aortic aneurysm Social History Smoking Status: Current every day smoker alcohol intake: never current occupational status: unemployed Travel in the last 8 weeks: None ROS Obtained: Yes All systems reviewed & no additional complaints except as documented Physical Exam
[2023-09-19 23:02] LABS: Basophils # 0.1 K/mm3 (0-0.2); Basophils % 0.7 % (0.1-2.0); Eosinophils # 0.4 K/mm3 (0.0-0.4); Eosinophils % 3.6 % (0.1-12.0); Hematocrit 43.7 % (37.0-47.0); Hemoglobin 14.4 g/dL (12.2-16.2); Lymphocytes # 4.6 K/mm3 (0.7-4.5); Lymphocytes % 39.3 % (10-50); Mean Corpuscular Hemoglobin 29.7 pg (27.0-31.2); Mean Corpuscular Volume 90.3 fl (81-99); Mean Platelet Volume 7.8 fl (7.4-10.4); Monocytes # 0.5 K/mm3 (0.1-1.0); Monocytes % 4.2 % (1.7-9.3); Neutrophils # 6.1 K/mm3 (1.8-7.8); Neutrophils % 52.2 % (37.0-80.0); Platelet Count 212 K/mm3 (142-424); Red Blood Count 4.84 M/mm3 (4.20-5.40); Red Cell Distribution Width 13.1 % (11.5-17.5); White Blood Count 11.8 K/mm3 (4.8-10.8)
--- NOTE | 2023-09-19 23:05 | PC.NURSE ---
in room talking with patient at this time.
[2023-09-19 23:06] VITALS: BP 166/98; PULSE 81; RESP 19; O2SAT 100
[2023-09-19 23:06] LABS: Chloride 106 mmol/L (98-107); Potassium 3.7 mmoL/L (3.5-5.1); Sodium 139 mmol/L (136-145)
[2023-09-19 23:08] LABS: Alanine Aminotransferase 22 U/L (12-78); Aspartate Amino Transferase 24 U/L (14-36); Blood Urea Nitrogen 15 mg/dl (7-17); Creatinine Clearance Estimated 143 mL/min (50-200); Estimated Glomerular Filt Rate 91 ml/min (>60); GFR (African American) 110 ML/MIN (>60)
[2023-09-19 23:09] LABS: Albumin Level 4.4 g/dl (3.5-5.0); Albumin/Globulin Ratio 1.3 (1.1-1.8); Alkaline Phosphatase 59 U/L (38-126); Anion Gap 10.7 mEq/L (5-15); Bilirubin,Total 0.2 mg/dl (0.2-1.3); Calcium 9.3 mg/dl (8.4-10.2); Carbon Dioxide 26 mmol/L (22.0-30.0); Globulin 3.4 g/dL (1.3-3.2); Glucose 101 mg/dl (74-100); Total Protein,Serum 7.8 g/dl (6.3-8.2)
[2023-09-19 23:27] LABS: T4 (Thyroxine) 14.8 ug/dl (5.53-11.0)
[2023-09-19 23:29] LABS: HCG,Quantitative < 2 mIU/ml (0-5.42); Troponin I < 0.01 ng/ml (0.00-0.034)
[2023-09-19 23:30] VITALS: BP 130/85; RESP 16
[2023-09-19 23:32] LABS: D-Dimer 1.12 ug/mL (0.0-0.5)
[2023-09-19 23:40] LABS: Thyroid Stimulating Hormone 2.64 uIU/mL (0.465-4.68)
--- NOTE | 2023-09-19 23:41 | PC.NURSE ---
in room talking with patient at this time.
[2023-09-19 23:47] LABS: Coronavirus 19, PCR Not Detected (NotDetected); Influenza A, PCR Not Detected (NotDetected); Influenza B, PCR Not Detected (NotDetected)
--- NOTE | 2023-09-20 | CT_ITS ---
PROCEDURE INFORMATION: Exam: CTA Chest With Contrast Exam date and time: 09/20/2023 12:12 AM Age: 23 years old Clinical indication: Pain and abnormal findings; Abnormal diagnostic tests; Elevated d-dimer; Sternal or substernal pain; Additional info: Palpitations, cp, positive dimer TECHNIQUE: Imaging protocol: Computed tomographic angiography of the chest with contrast. Exam focused on the arteries. 3D rendering (Not supervised by radiologist): MIP and/or 3D reconstructed images were created by the technologist. Radiation optimization: All CT scans at this facility use at least one of these dose optimization techniques: automated exposure control; mA and/or kV adjustment per patient size (includes targeted exams where dose is matched to clinical indication); or iterative reconstruction. Contrast material: ISOUVE; Contrast volume: 70 ml; Contrast route: INTRAVENOUS (IV); REPORTING DATA: Count of CT and Cardiac NM exams in prior 12 months: This patient has received 0 known CTs and 0 known cardiac nuclear medicine studies in the 12 months prior to the current study. COMPARISON: CR XR CHEST PORTABLE 09/19/2023 10:58 PM FINDINGS: Pulmonary arteries: There is fair opacification of the pulmonary arterial tree. No central pulmonary arterial filling defect is seen. Aorta: Unremarkable. No aortic aneurysm. No aortic dissection. Other arteries: Subsegmental vessels are not well evaluated due to contrast timing. Lungs: Unremarkable. No consolidation. No masses. Pleural spaces: Unremarkable. No pneumothorax. No pleural effusion. Heart: Unremarkable. No cardiomegaly. No pericardial effusion. Lymph nodes: Unremarkable. No enlarged lymph nodes. Bones/joints: Unremarkable. No acute fracture. Soft tissues: Unremarkable. Other findings: Motion artifact mildly limits evaluation. IMPRESSION: 1. No central pulmonary arterial filling defect is seen. Subsegmental vessels are not well evaluated due to contrast timing. 2. No dense parenchymal consolidation, pleural effusion, or pneumothorax.
--- NOTE | 2023-09-20 00:09 | PC.NURSE ---
patient gone to CT at this time.
--- NOTE | 2023-09-20 00:18 | PC.NURSE ---
patient back in room from CT at this time.
[2023-09-20 01:10] VITALS: BP 166/98; PULSE 82; RESP 17; TEMP 37.1; O2SAT 100
[2023-09-20 01:18] LABS: Ethyl Alcohol < 10 mg/dl (0-10)
== END 2023-09-20 01:13 | disposition home or self-care (01) ==
PROVIDERS: Emergency Medicine; Emergency Provider Emergency Medicine
DX: R07.89 Other chest pain (principal); I49.9 Cardiac arrhythmia, unspecified; R55 Syncope and collapse; R00.2 Palpitations; R79.89 Other specified abnormal findings of blood chemistry; F17.210 Nicotine dependence, cigarettes, uncomplicated
CPT/HCPCS: 71045; 71275; 80053; 84436; 84443; 84484; 84702; 85025; 85378; 87636; 93005; 93225; 99285; Q9967

== ENCOUNTER 2024-08-13 15:16 | Outpatient (CLI) | payer OTHER, SELFPAY ==
--- NOTE | 2024-08-13 15:23 | US_ITS ---
PROCEDURE: US TRANSVAGINAL CLINICAL INDICATION: Pelvic Pain COMPARISON: No exams were available for comparison FINDINGS: Transvaginal sonographic images of the pelvis were obtained. UTERUS: 7.7 cm x 4.6 cmx 4.4cm anteverted with a combined endometrial thickness of 12.7mm. LEFT OVARY: 2.9 cmx2.2cmx2.6cm with a volume of 8.8ml. There are multiple small peripheral follicles consistent with a polycystic ovary. There is a dominant follicle measuring 1.8 cm. RIGHT OVARY: 2.9 cmx 2.2cmx2.6cm with a volume of 6.3ml. There are multiple small peripheral follicles consistent with a polycystic ovary. Both ovaries are seen and appear polycystic. Doppler flow to both ovaries are seen. There is no fluid in the cul-de-sac. IMPRESSION: 1. Anteverted uterus normal in shape and size. The endometrium is thickened and premenstrual. 2. Both ovaries are seen and appear polycystic. 3. There is a dominant follicle measuring 1.8 cm in the left ovary. 4. No fluid in the cul-de-sac. Dictated by: Mauro Gottlieb MD 08/13/2024 17:34 Mauro Gottlieb MD in OV 08/13/2024 17:34
[2024-08-13 16:10] LABS: Basophils # 0.1 K/mm3 (0-0.2); Basophils % 0.7 % (0.1-2.0); Eosinophils # 0.5 K/mm3 (0.0-0.4); Eosinophils % 3.4 % (0.1-12.0); Hematocrit 43.4 % (37.0-47.0); Hemoglobin 14.7 g/dL (12.2-16.2); Lymphocytes # 3.7 K/mm3 (0.7-4.5); Lymphocytes % 27.9 % (10-50); Mean Corpuscular HGB Conc 33.9 g/dL (31.8-35.4); Mean Corpuscular Volume 88.5 fl (81-99); Mean Platelet Volume 7.8 fl (7.4-10.4); Monocytes # 0.6 K/mm3 (0.1-1.0); Monocytes % 4.4 % (1.7-9.3); Neutrophils # 8.5 K/mm3 (1.8-7.8); Neutrophils % 63.5 % (37.0-80.0); Platelet Count 272 K/mm3 (142-424); Red Cell Distribution Width 13.1 % (11.5-17.5); White Blood Count 13.4 K/mm3 (4.8-10.8)
[2024-08-13 16:30] LABS: Albumin Level 4.4 g/dl (3.5-5.0); Chloride 108 mmol/L (98-107)
[2024-08-13 16:31] LABS: Potassium 4.2 mmoL/L (3.5-5.1); Sodium 138 mmol/L (136-145)
[2024-08-13 16:33] LABS: Alanine Aminotransferase 17 U/L (12-78); Albumin/Globulin Ratio 1.5 (1.1-1.8); Alkaline Phosphatase 73 U/L (38-126); Anion Gap 10.2 mEq/L (5-15); Aspartate Amino Transferase 23 U/L (14-36); Bilirubin,Total 0.5 mg/dl (0.2-1.3); Blood Urea Nitrogen 12 mg/dl (7-17); Carbon Dioxide 24 mmol/L (22.0-30.0); Estimated Glomerular Filt Rate 125 ml/min (>60); GFR (African American) 151 ML/MIN (>60); Globulin 2.9 g/dL (1.3-3.2); Total Protein,Serum 7.3 g/dl (6.3-8.2)
[2024-08-13 16:34] LABS: Calcium 9.7 mg/dl (8.4-10.2); Glucose 91 mg/dl (74-100)
[2024-08-13 16:43] LABS: Total Iron Binding Capacity 381 ug/dL (265-497)
[2024-08-13 17:04] LABS: Thyroid Stimulating Hormone 1.02 uIU/mL (0.465-4.68)
[2024-08-13 17:23] LABS: Vitamin B12 352 pg/mL (239-931)
[2024-08-13 17:49] LABS: Iron 62 ug/dL (37-170)
[2024-08-17 15:43] LABS: Vitamin B1 138.8 nmol/L (66.5-200.0)
[2024-08-19 21:36] LABS: Vitamin B6 3.7 ug/L (3.4-65.2)
[2024-08-27 19:09] LABS: 1,25 Dihydroxy Vitamin D 17 pg/mL (.); 1,25-Dihydroxy, Vitamin D-2 <10 pg/mL (.); 1,25-Dihydroxy, Vitamin D-3 17 pg/mL (.)
== END 2024-08-13 23:59 | disposition home or self-care (01) ==
LOC: RAD 15:18
PROVIDERS: PCP Student in an Organized Health Care Education/Training Program; Visit Provider Obstetrics & Gynecology
DX: R10.2 Pelvic and perineal pain (principal); N92.6 Irregular menstruation, unspecified; R10.32 Left lower quadrant pain; E66.9 Obesity, unspecified; Z68.34 Body mass index [BMI] 34.0-34.9, adult
CPT/HCPCS: 36415; 76830; 80050; 80053; 82607; 82652; 83036; 83540; 83550; 84207; 84425; 84443; 85025

== ENCOUNTER 2024-09-30 20:16 | Emergency (ER) | payer OTHER, SELFPAY ==
[2024-09-30 20:17] VITALS: BP 149/95; PULSE 94; RESP 20; TEMP 36.6; O2SAT 99; BMI 35.7
--- NOTE | 2024-09-30 20:34 | HMH.EDGENADL ---
Discharge Plan Disposition Patient Disposition: Home, Self-Care Condition: Good Prescriptions Prescriptions: New ketorolac 10 mg tablet 10 mg PO Q8H PRN (Reason: pain) 3 Days Qty: 12 0RF No Action ibuprofen 800 mg tablet 800 mg PO Q8H cholecalciferol (vitamin D3) 25 mcg (1,000 unit) capsule 25 mcg PO DAILY Qty: 30 2RF Referrals Follow up/Referrals: Lyn Mata DO [Primary Care Provider] - See instructions Sakina Severino DO [Staff Physician] - See instructions Activity Restrictions/Add. Instructions Additional Instructions/Restrictions: You were evaluated in the emergency department today. Please continuous pickling line pickler your prescription and take as prescribed. You may also take Tylenol every 4-6 hours in addition to this. Please follow-up closely with your primary care provider as well as with your acquisitions assistant. I recommend close follow-up this week. Return to the emergency department right away for new or worsening symptoms. Clinical Impressions Clinical Impression: Abdominal pain, LLQ, Abnormal vaginal bleeding Stand Alone Forms Stand Alone Forms: Work/School Release Instructions Patient Instructions: DI for Acute Abdominal Pain, DI for Vaginal Bleeding Print Language Print Language: Ethiopian Discharge ED Provider: Krystal Melissa General Adult HPI <SOHAIL Navarro - Last Filed: 09/30/24 21:15> General Chief complaint: Abdominal Pain Stated complaint: abd pain, vaginal bleeding Time Seen by Provider: 09/30/24 20:29 Mode of Arrival: Ambulatory Source of Information: Patient Limitations: No Limitations Description of Symptoms (Recalled from ER Triage Doc. by RN): Pt c/o vaginal bleeding starting today worsening around 1700. LMP on 09/17. Also reports lower abd pain and back pain rated 7/10 History of Present Illness HPI narrative: 24-year-old female who is G3, , not current history of per patient, presents emergency department with vaginal bleeding and left lower abdominal pain and back pain that started today, she endorses nausea, she endorses history of irregular menses, ovarian cyst on the left, and a history of nephrolithiasis, LMP was was on 09/17. Reports vaginal bleeding is some spotting, she denies any fever chills chest pain shortness of breath, denies any change in bowel habits to include diarrhea constipation hematuria hematemesis, hematochezia, or melena, patient denies any new sexual contacts or risky sexual behaviors, she denies any vaginal discharge vaginal irritation. Other past medical history consistent with current everyday tobacco use, denies any alcohol or drug use initial triage vitals grossly unremarkable. Patient has been utilizing Tylenol for pain with little to no relief. Related Data Home Medications ?Medication ?Instructions ?Recorded ?Confirmed ibuprofen 800 mg tablet 800 mg PO Q8H 12/26/23 08/07/24 Previous Rx's ?Medication ?Instructions ?Recorded cholecalciferol (vitamin D3) 25 25 mcg PO DAILY #30 caps 08/29/24 mcg (1,000 unit) capsule ketorolac 10 mg tablet 10 mg PO Q8H PRN pain 3 days #12 09/30/24 tabs Allergies Allergy/AdvReac Type Severity Reaction Status Date / Time No Known Allergies Allergy Verified 09/30/24 21:26 PFS <SOHAIL Navarro - Last Filed: 09/30/24 21:15> [facility] Disclaimer: The information contained in this section may have been updated after the patient was seen, as this information can be updated by other users. Medical History (Updated 09/30/24 @ 23:07 by Krystal Melissa DO) Pelvic pain Irregular periods LLQ pain Anxiety Depression History of gestational hypertension Tobacco use History of stillbirth SIRS (systemic inflammatory response syndrome) Surgical History H/O knee surgery Family History Other Family history of abdominal aortic aneurysm Social History Smoking Status: Current every day smoker alcohol intake: never current occupational status: unemployed Other Medical History Have you received the Flu Vaccine for this season: No Have you received the Pneumonia Vaccine: No <SOHAIL Navarro - Last Filed: 09/30/24 21:15> ROS Obtained: Yes All systems reviewed & no additional complaints except as documented Physical Exam <SOHAIL Navarro - Last Filed: 09/30/24 21:15> General General appearance: alert and in no apparent distress Head Head exam: atraumatic and normocephalic Eye Eye exam: Present PERRL and EOMI ENT ENT exam: Present mucous membranes moist Neck Neck exam: Present normal inspection Chest Chest inspection: Present normal inspection and symmetric chest wall rise Respiratory Respiratory exam: Present normal lung sounds bilaterally; Absent respiratory distress Cardiovascular Cardiovascular exam: Present regular rate and normal rhythm Abdominal Exam Abdominal exam: Present soft and tenderness; Absent Jenkins's sign, Rovsing's sign or tenderness at McBurney's Point Abdominal tenderness: Present LLQ, suprapubic and mild Extremities Exam Extremities exam: Present normal inspection Back Exam Back exam: Present CVA tenderness (L); Absent CVA tenderness (R) Neurological Exam Neurological exam: Present alert and oriented X3 Psychiatric Psychiatric exam: Present normal affect Skin Skin exam: Present warm and dry Medical Decision Making <SOHAIL Navarro - Last Filed: 09/30/24 21:15> Medical Records Medical records reviewed: Yes I reviewed the patient's medical records. Screening: Per USPSTF and CDC recommendations, given the prevalence of disease in our region, it is our hospital?s policy to screen for HIV and viral Hepatitis for all patients aged 18 and over and those with ongoing risk factors. Melo Inquiry Pt receiving controlled substance: No Melo was queried for this patient: No Vital Signs: 09/30/24 20:17 09/30/24 23:12 Temperature 97.9 F 97.9 F Temperature Source Oral Oral Pulse Rate 68 Pulse Rate [Apical] 94 H Respiratory Rate 20 20 Blood Pressure 107/73 L Blood Pressure [Right Arm] 149/95 H Blood Pressure Mean [Right Arm] 113 Blood Pressure Source Automatic Cuff Blood Pressure Position Sitting 02 Sat by Pulse Oximetry 99 Oxygen Delivery Method Room Air Room Air Lab Data Lab Results 09/30/24 20:24: WBC 9.7, RBC 4.83, Hgb 14.5, Hct 43.4, MCV 90.0, MCH 30.1, MCHC 33.5, RDW 12.5, Plt Count 273, MPV 7.9, Neut % (Auto) 52.5, Lymph % (Auto) 36.7, [place] % (Auto) 5.6, Eos % (Auto) 4.0, Baso % (Auto) 1.2, Neut # (Auto) 5.1, Lymph # (Auto) 3.5, [place] # (Auto) 0.5, Eos # (Auto) 0.4, Baso # (Auto) 0.1, Sodium 140, Potassium 4.0, Chloride 107, Carbon Dioxide 26, Anion Gap 11.0, BUN 13, Creatinine 0.80, Estimated Creat Clear 186, Estimated GFR 90, Est GFR ( Amer) 109, Glucose 97, Calcium 9.6, Total Bilirubin 0.4, AST 32, ALT 20, Alkaline Phosphatase 62, Total Protein 7.5, Albumin 4.4, Globulin 3.1, Albumin/Globulin Ratio 1.4, Lipase 115, HIV 1&2 Antibody Rapid Nonreactive 09/30/24 20:26: Urine Color Yellow, Urine Appearance Slightly cloudy, Urine pH 7.0, Ur Specific [place] 1.015, Urine Protein Negative, Urine Glucose (UA) Negative, Urine Ketones Negative, Urine Blood 3+ A, Urine Nitrate Negative, Urine Bilirubin Negative, Urine Urobilinogen 0.2, Ur Leukocyte Esterase Negative, Urine RBC Occasional, Urine WBC 3-5, Ur Squamous Epith Cells 10-20, Urine Bacteria 1+, Urine HCG, Qual Negative 09/30/24 20:24 09/30/24 20:24 Orders (Tests/Meds): ED MEDICATIONS Discontinued Medications Generic Name Dose Route Start Last Admin Trade Name Freq PRN Reason Stop Dose Admin Ketorolac Tromethamine 15 mg 09/30/24 20:36 09/30/24 20:57 Ketorolac 30mg/Ml Vial IV 09/30/24 20:37 15 mg ONCE ONE Administration Ondansetron HCl 4 mg 09/30/24 20:37 09/30/24 20:58 Ondansetron 4mg/2ml Vial IV 09/30/24 20:38 4 mg ONCE ONE Administration ORDERS Category Date Time Status CT abdomen pelvis wo con Stat Cat Scan 09/30/24 21:37 Completed US transvaginal Stat Exams 09/30/24 20:35 Completed Complete Blood Count Auto Diff Stat Lab 09/30/24 20:24 Completed Comprehensive Metabolic Panel Stat Lab 09/30/24 20:24 Completed HIV (1&2) Antibody Rapid Stat Lab 09/30/24 20:24 Completed Hep C Ab with Reflex to RNA Stat Lab 09/30/24 20:24 Received Lipase Stat Lab 09/30/24 20:24 Completed Urinalysis and Microscopic Stat Lab 09/30/24 20:26 Completed Urine , HCG Qual. Stat Lab 09/30/24 20:26 Completed Medical Decision Narrative: 24-year-old female presents emergency department with left lower quadrant abdominal pain vaginal bleeding started today, as well as back pain, differential diagnose include but not limited , acute UTI, acute pyelonephritis, ovarian cyst, ovarian torsion, nephrolithiasis, ureterolithiasis, endometriosis, primary dysmenorrhea, spontaneous , dysfunctional uterine bleeding. Obtain basic laboratory studies include lipase urinalysis, urine hCG, CT abdomen pelvis with contrast and transvaginal ultrasound for further evaluation as characterization, will give 15 mg IV Toradol and 4 mg Zofran for nausea. +3 hematuria, negative nitrites, negative leukocyte esterase. CBC unremarkable, beta-hCG qualitative is negative. Discussed patient case with attending physician Dr. Melissa at shift change she will be assuming patient's care/workup, pending imaging studies and chemistry. <Krystal Melissa, DO - Last Filed: 09/30/24 23:34> Vital Signs: 09/30/24 20:17 09/30/24 23:12 Temperature 97.9 F 97.9 F Temperature Source Oral Oral Pulse Rate 68 Pulse Rate [Apical] 94 H Respiratory Rate 20 20 Blood Pressure 107/73 L Blood Pressure [Right Arm] 149/95 H Blood Pressure Mean [Right Arm] 113 Blood Pressure Source Automatic Cuff Blood Pressure Position Sitting 02 Sat by Pulse Oximetry 99 Oxygen Delivery Method Room Air Room Air Lab Data Lab Results 09/30/24 20:24: WBC 9.7, RBC 4.83, Hgb 14.5, Hct 43.4, MCV 90.0, MCH 30.1, MCHC 33.5, RDW 12.5, Plt Count 273, MPV 7.9, Neut % (Auto) 52.5, Lymph % (Auto) 36.7, [place] % (Auto) 5.6, Eos % (Auto) 4.0, Baso % (Auto) 1.2, Neut # (Auto) 5.1, Lymph # (Auto) 3.5, [place] # (Auto) 0.5, Eos # (Auto) 0.4, Baso # (Auto) 0.1, Sodium 140, Potassium 4.0, Chloride 107, Carbon Dioxide 26, Anion Gap 11.0, BUN 13, Creatinine 0.80, Estimated Creat Clear 186, Estimated GFR 90, Est GFR ( Amer) 109, Glucose 97, Calcium 9.6, Total Bilirubin 0.4, AST 32, ALT 20, Alkaline Phosphatase 62, Total Protein 7.5, Albumin 4.4, Globulin 3.1, Albumin/Globulin Ratio 1.4, Lipase 115, HIV 1&2 Antibody Rapid Nonreactive 09/30/24 20:26: Urine Color Yellow, Urine Appearance Slightly cloudy, Urine pH 7.0, Ur Specific [place] 1.015, Urine Protein Negative, Urine Glucose (UA) Negative, Urine Ketones Negative, Urine Blood 3+ A, Urine Nitrate Negative, Urine Bilirubin Negative, Urine Urobilinogen 0.2, Ur Leukocyte Esterase Negative, Urine RBC Occasional, Urine WBC 3-5, Ur Squamous Epith Cells 10-20, Urine Bacteria 1+, Urine HCG, Qual Negative Orders (Tests/Meds): ED MEDICATIONS Discontinued Medications Generic Name Dose Route Start Last Admin Trade Name Freq PRN Reason Stop Dose Admin Ketorolac Tromethamine 15 mg 09/30/24 20:36 09/30/24 20:57 Ketorolac 30mg/Ml Vial IV 09/30/24 20:37 15 mg ONCE ONE Administration Ondansetron HCl 4 mg 09/30/24 20:37 09/30/24 20:58 Ondansetron 4mg/2ml Vial IV 09/30/24 20:38 4 mg ONCE ONE Administration ORDERS Category Date Time Status CT abdomen pelvis wo con Stat Cat Scan 09/30/24 21:37 Completed US transvaginal Stat Exams 09/30/24 20:35 Completed Complete Blood Count Auto Diff Stat Lab 09/30/24 20:24 Completed Comprehensive Metabolic Panel Stat Lab 09/30/24 20:24 Completed HIV (1&2) Antibody Rapid Stat Lab 09/30/24 20:24 Completed Hep C Ab with Reflex to RNA Stat Lab 09/30/24 20:24 Received Lipase Stat Lab 09/30/24 20:24 Completed Urinalysis and Microscopic Stat Lab 09/30/24 20:26 Completed Urine , HCG Qual. Stat Lab 09/30/24 20:26 Completed Medical Decision Narrative: 24-year-old female presents emergency department with left lower quadrant abdominal pain vaginal bleeding started today, as well as back pain, differential diagnose include but not limited , acute UTI, acute pyelonephritis, ovarian cyst, ovarian torsion, nephrolithiasis, ureterolithiasis, endometriosis, primary dysmenorrhea, spontaneous , dysfunctional uterine bleeding. Obtain basic laboratory studies include lipase urinalysis, urine hCG, CT abdomen pelvis with contrast and transvaginal ultrasound for further evaluation as characterization, will give 15 mg IV Toradol and 4 mg Zofran for nausea. +3 hematuria, negative nitrites, negative leukocyte esterase. CBC unremarkable, beta-hCG qualitative is negative. Discussed patient case with attending physician Dr. Melissa at shift change she will be assuming patient's care/workup, pending imaging studies and chemistry. DO Shin: I was consulted by the MAHNAZ, and we discussed the complexity of the problems being addressed. I approved the treatment and management plan for this patient's care in the emergency department, thus performing a substantive portion of the medical decision making. I assumed solo care of the patient at 2100 at time of departure of MAHNAZ. Labs reassuring with no significant anemia, leukocytosis, or other concerns. CT scan and ultrasound concerning for free fluid in the pelvis but no large ovarian cyst, torsion, or other concern. Some blood in the urine, which could be contamination from vaginal bleeding. She has no urinary tract infection type symptoms, so deferring to treat at this time. It is possible she could have ruptured cyst as a cause of her pain and small free fluid in the pelvis. Ultimately, I feel she is appropriate for discharge and we have excluded acute life-threatening pathology. I feel she is appropriate for close follow-up with gynecology and primary care. She was given prescription for Toradol and strict return precautions. Krystal Melissa DO Critical Care <SOHAIL Navarro - Last Filed: 09/30/24 21:15> Critical Care Time Critical Care Time: No
--- NOTE | 2024-09-30 20:35 | US_ITS ---
PROCEDURE INFORMATION: Exam: US Pelvis, Transvaginal, Non-Obstetric, US Duplex Artery and Vein of the Reproductive Organs, Complete Exam date and time: 09/30/2024 9:05 PM Age: 24 years old Clinical indication: Pelvic pain; Additional info: Vag bleeding, R/O torsion history of cyst left TECHNIQUE: Imaging protocol: Real-time transvaginal pelvic (non-obstetric) ultrasound with image documentation. Transvaginal imaging was used for better evaluation of the endometrium, adnexa, and/or cervix. Real-time duplex ultrasound scan of the arterial and venous flow of the abdominal and/or reproductive organs with B-mode, color Doppler flow and spectral waveform analysis with image documentation. Exam focused on the region of clinical concern. Complete exam. Duplex exam was performed to evaluate for vascular conditions. COMPARISON: US TRANSVAGINAL 08/13/2024 3:19 PM FINDINGS: Uterus: Measures approximately 8.1 x 3.7 x 4.3 cm. Nabothian cyst(s) in the region of the cervix. Endometrial stripe thickness: Endometrial thickness is approximately 11 mm. Right ovary/adnexa: Measures approximately 6.3 mL. Multiple small anechoic follicles. Left ovary/adnexa: Measures approximately 11.7 mL. Multiple small anechoic follicles. Urinary bladder: NA Intraperitoneal space: No discernible adnexal mass or abnormality. No free fluid within the pelvis. Other findings: Doppler examination of the ovaries with pulsed wave and color images was performed which demonstrate arterial/venous waveforms within normal limits. IMPRESSION: 1. Normal pelvic sonogram. 2. Normal ovaries demonstrating blood flow on Doppler.
[2024-09-30 20:41] LABS: Microscopic, Urine URINE MICROSCOPIC (MICROSCOPIC)
[2024-09-30 20:44] LABS: Bilirubin,Urine Negative (Negative); Blood, Urine 3+ (Negative); Color,Urine YELLOW (Yellow); Glucose,Urine (UA) Negative (Negative); Ketones,Urine Negative (Negative); Leukocyte Esterase,Urine Negative (Negative); Nitrate,Urine Negative (Negative); Protein,Urine Negative (Negative); Specific Gravity, Urine 1.015 (1.005-1.030); Urobilinogen,Urine 0.2 EU/dl (0.2)
[2024-09-30 20:49] LABS: Appearance,Urine Slightly Cloudy (Clear)
[2024-09-30] MEDS: KETOROLAC 30MG/ML VIAL 15 MG IV (20:57)
[2024-09-30] MEDS: ONDANSETRON 4MG/2ML VIAL 4 MG IV (20:58)
[2024-09-30 21:00] LABS: Basophils # 0.1 K/mm3 (0-0.2); Basophils % 1.2 % (0.1-2.0); Eosinophils # 0.4 K/mm3 (0.0-0.4); Hematocrit 43.4 % (37.0-47.0); Hemoglobin 14.5 g/dL (12.2-16.2); Lymphocytes # 3.5 K/mm3 (0.7-4.5); Lymphocytes % 36.7 % (10-50); Mean Corpuscular HGB Conc 33.5 g/dL (31.8-35.4); Mean Corpuscular Hemoglobin 30.1 pg (27.0-31.2); Mean Platelet Volume 7.9 fl (7.4-10.4); Monocytes # 0.5 K/mm3 (0.1-1.0); Monocytes % 5.6 % (1.7-9.3); Neutrophils # 5.1 K/mm3 (1.8-7.8); Neutrophils % 52.5 % (37.0-80.0); Platelet Count 273 K/mm3 (142-424); Red Blood Count 4.83 M/mm3 (4.20-5.40); Red Cell Distribution Width 12.5 % (11.5-17.5); White Blood Count 9.7 K/mm3 (4.8-10.8)
[2024-09-30 21:00] LABS: Bacteria,Urine 1+ /lpf; RBC,Urine Occasional #/hpf (0-3)
[2024-09-30 21:01] LABS: Urine Pregnancy, HCG Qual. Negative (Negative)
--- NOTE | 2024-09-30 21:08 | PC.NURSE ---
Pt transported to ultrasound by compounding technician
[2024-09-30 21:19] LABS: Albumin Level 4.4 g/dl (3.5-5.0); Chloride 107 mmol/L (98-107); Sodium 140 mmol/L (136-145)
[2024-09-30 21:22] LABS: Alanine Aminotransferase 20 U/L (12-78); Albumin/Globulin Ratio 1.4 (1.1-1.8); Alkaline Phosphatase 62 U/L (38-126); Aspartate Amino Transferase 32 U/L (14-36); Bilirubin,Total 0.4 mg/dl (0.2-1.3); Blood Urea Nitrogen 13 mg/dl (7-17); Carbon Dioxide 26 mmol/L (22.0-30.0); Creatinine Clearance Estimated 186 mL/min (50-200); Estimated Glomerular Filt Rate 90 ml/min (>60); GFR (African American) 109 ML/MIN (>60); Globulin 3.1 g/dL (1.3-3.2); Lipase 115 U/L (23-300); Total Protein,Serum 7.5 g/dl (6.3-8.2)
[2024-09-30 21:23] LABS: Calcium 9.6 mg/dl (8.4-10.2); Glucose 97 mg/dl (74-100)
--- NOTE | 2024-09-30 21:37 | CT_ITS ---
PROCEDURE INFORMATION: Exam: CT Abdomen And Pelvis Without Contrast Exam date and time: 09/30/2024 9:48 PM Age: 24 years old Clinical indication: Abdominal pain; Additional info: L side pain, h/o stones TECHNIQUE: Imaging protocol: Computed tomography of the abdomen and pelvis without contrast. Radiation optimization: All CT scans at this facility use at least one of these dose optimization techniques: automated exposure control; mA and/or kV adjustment per patient size (includes targeted exams where dose is matched to clinical indication); or iterative reconstruction. COMPARISON: CT ABDOMEN PELVIS W CON 08/03/2022 10:57 PM FINDINGS: Pancreaticohepatobiliary: Liver: The liver is enlarged without a focal intrahepatic mass or abnormality. No significant intra-or extrahepatic ductal dilation. Gallbladder: Gallbladder is contracted without obvious gallstones. Pancreas: Normal in size normal in size and attenuation without peripancreatic fluid or obvious mass. Spleen: Normal in size and attenuation. . Genitourinary: Adrenal gland: No adrenal mass. Kidneys: Kidneys are unremarkable without obstructive renal/ureteric calculi and no hydronephrosis. Urinary bladder: Near empty urinary bladder. Uterus/ovaries: Uterus is normal. Trace amount of free fluid in the pelvis. . Gastrointestinal: Bowel: Colon contains a moderate amount of fecal matter. A few colonic diverticula. Bowel loops are otherwise unremarkable. No free air or fluid in the abdomen. Appendix: A normal APPENDIX is visualized. . Other findings: Aorta: Aorta appears unremarkable without evidence of aortic aneurysm. Lymph nodes: No bulky lymph node enlargement. Lung bases: Nodular, platelike atelectasis and scarring in the lung bases. IMPRESSION: 1. No evidence of nephrolithiasis/urolithiasis and no obstructive uropathy. 2. Nonemergent/incidental findings as described. COMMENT: Suboptimal evaluation of bowel loops and abdominal organs due to lack of oral and intravenous contrast.
--- NOTE | 2024-09-30 21:41 | PC.NURSE ---
Pt returned from ultrasound
[2024-09-30 21:52] LABS: HIV (1&2) Antibody Rapid NONREACTIVE (NONREACTIVE)
[2024-09-30 23:12] VITALS: BP 107/73; PULSE 68; RESP 20; TEMP 36.6; O2SAT 97
[2024-10-02 08:19] LABS: HCV Ab Non Reactive (Non Reactive)
== END 2024-09-30 23:22 | disposition home or self-care (01) ==
PROVIDERS: Physician Assistant; Emergency Provider Emergency Medicine; PCP Student in an Organized Health Care Education/Training Program
DX: R10.32 Left lower quadrant pain (principal); N93.9 Abnormal uterine and vaginal bleeding, unspecified; R11.0 Nausea; M54.9 Dorsalgia, unspecified
CPT/HCPCS: 74176; 76830; 80053; 81001; 81025; 83690; 85025; 86803; 87389; 96374; 96375; 99284; J1885; J2405

== ENCOUNTER 2024-10-02 11:25 | Emergency (ER) | payer OTHER, SELFPAY ==
[2024-10-02 11:26] VITALS: BP 122/90; PULSE 80; RESP 18; TEMP 36.8; O2SAT 100; BMI 34.9
[2024-10-02 11:30] VITALS: BP 122/90; PULSE 82; O2SAT 100
--- NOTE | 2024-10-02 11:54 | HMH.EDGENADL ---
Discharge Plan Disposition Patient Disposition: Xfer Short-Term Hosp Prescriptions Prescriptions: No Action ibuprofen 800 mg tablet 800 mg PO Q8H cholecalciferol (vitamin D3) 25 mcg (1,000 unit) capsule 25 mcg PO DAILY Qty: 30 2RF ketorolac 10 mg tablet 10 mg PO Q8H PRN (Reason: pain) 3 Days Qty: 12 0RF Referrals Follow up/Referrals: Lyn Mata DO [Primary Care Provider] - See instructions Sakina Severino DO [Staff Physician] - See instructions Activity Restrictions/Add. Instructions Additional Instructions/Restrictions: Call your family doctor to establish care for this visit to the emergency department and schedule follow-up within 48 hours to ensure improvement. If you have any worsening of your condition or any other concerning signs or symptoms, return to the emergency department or your primary care doctor for further evaluation. Clinical Impressions Clinical Impression: Left lower quadrant abdominal pain Instructions Patient Instructions: DI for Acute Abdominal Pain Print Language Print Language: Armenian Discharge ED Provider: Farhad Silva General Adult HPI General Chief complaint: Abdominal Pain Stated complaint: abd pain Time Seen by Provider: 10/02/24 11:32 Mode of Arrival: Ambulatory Source of Information: Patient Limitations: No Limitations Description of Symptoms (Recalled from ER Triage Doc. by RN): left sided lower abdominal pain. was told she had a ruptured cyst on tuesday. has not improved History of Present Illness HPI narrative: Please note that above description of symptoms, in this electronic medical record under categorization of recalled from ER triage doctor by RN are reflective of an initial nursing assessment, however, is not reflective of my full history and physical exam that was personally taken and clarified. Consequentially, this preceding description of symptoms, which may include the patient's categorized chief complaint in the EMR, do not reflect my personal clinical impression, and the ultimate description of history of present illness and patient stated complaints should be deferred to this section of the note. Unless stated otherwise or congruent with this section of the note, additional signs, symptoms, or incongruence should be interpreted as inaccurate with my clinical impression. Related Data Home Medications ?Medication ?Instructions ?Recorded ?Confirmed ibuprofen 800 mg tablet 800 mg PO Q8H 12/26/23 08/07/24 Previous Rx's ?Medication ?Instructions ?Recorded cholecalciferol (vitamin D3) 25 25 mcg PO DAILY #30 caps 08/29/24 mcg (1,000 unit) capsule ketorolac 10 mg tablet 10 mg PO Q8H PRN pain 3 days #12 09/30/24 tabs Allergies Allergy/AdvReac Type Severity Reaction Status Date / Time No Known Allergies Allergy Verified 09/30/24 21:26 [facility] Disclaimer: The information contained in this section may have been updated after the patient was seen, as this information can be updated by other users. Medical History (Updated 10/02/24 @ 13:36 by Farhad Silva MD) Pelvic pain Irregular periods LLQ pain Anxiety Depression History of gestational hypertension Tobacco use History of stillbirth SIRS (systemic inflammatory response syndrome) Surgical History H/O knee surgery Family History Other Family history of abdominal aortic aneurysm Social History Smoking Status: Current every day smoker alcohol intake: never current occupational status: unemployed Travel in the last 8 weeks: None Other Medical History Have you received the Flu Vaccine for this season: No Have you received the Pneumonia Vaccine: No ROS Obtained: Yes All systems reviewed & no additional complaints except as documented Physical Exam General General appearance: alert and obese Head Head exam: atraumatic and normocephalic Eye Eye exam: Present normal appearance, PERRL and EOMI Neck Neck exam: Present normal inspection, full ROM and trachea midline Respiratory Respiratory exam: Absent respiratory distress, wheezes, stridor, accessory muscle use or prolonged expiratory phase Cardiovascular Cardiovascular exam: Present other (Pulses equal symmetric in upper and lower extremities) Abdominal Exam Abdominal exam: Present soft and tenderness; Absent distention, guarding, rebound, rigidity, Jenkins's sign, Rovsing's sign, tenderness at McBurney's Point or pulsatile mass Abdominal tenderness: Present LLQ, suprapubic and mild Extremities Exam Extremities exam: Absent edema Neurological Exam Neurological exam: Present alert, oriented X3 and CN II-XII intact; Absent motor sensory deficit Skin Skin exam: Present warm and dry; Absent diaphoresis or erythema Medical Decision Making Medical Records Medical records reviewed: Yes I reviewed the patient's medical records. Screening: Per USPSTF and CDC recommendations, given the prevalence of disease in our region, it is our hospital?s policy to screen for HIV and viral Hepatitis for all patients aged 18 and over and those with ongoing risk factors. Melo Inquiry Pt receiving controlled substance: No Melo was queried for this patient: No Vital Signs: 10/02/24 11:26 10/02/24 11:30 10/02/24 13:23 Temperature 98.2 F Temperature Source Oral Pulse Rate 82 62 Pulse Rate [Right] 80 Respiratory Rate 18 Blood Pressure 122/90 112/86 Blood Pressure [Right Arm] 122/90 Blood Pressure Mean [Right Arm] 100 02 Sat by Pulse Oximetry 100 100 99 Oxygen Delivery Method Room Air Room Air Lab Data Lab Results 10/02/24 11:35: WBC 10.3, RBC 5.00, Hgb 15.0, Hct 44.9, MCV 89.8, MCH 30.0, MCHC 33.4, RDW 12.5, Plt Count 256, MPV 8.0, Neut % (Auto) 59.6, Lymph % (Auto) 33.1, [place] % (Auto) 3.8, Eos % (Auto) 2.6, Baso % (Auto) 0.9, Neut # (Auto) 6.2, Lymph # (Auto) 3.4, [place] # (Auto) 0.4, Eos # (Auto) 0.3, Baso # (Auto) 0.1, ESR 12, Sodium 141, Potassium 4.5, Chloride 108 H, Carbon Dioxide 29, Anion Gap 8.5, BUN 10, Creatinine 0.70, Estimated Creat Clear 208, Estimated GFR 105, Est GFR ( Amer) 127, Glucose 105 H, Lactate 0.7, Calcium 9.4, Total Bilirubin 0.4, AST 29, ALT 19, Alkaline Phosphatase 59, C-Reactive Protein 7.8 H, Total Protein 7.4, Albumin 4.4, Globulin 3.0, Albumin/Globulin Ratio 1.5, Lipase 63, HCG, Quant < 2, Urine Color Yellow, Urine Appearance Clear, Urine pH 6.5, Ur Specific [place] 1.020, Urine Protein Negative, Urine Glucose (UA) Negative, Urine Ketones Negative, Urine Blood Negative, Urine Nitrate Negative, Urine Bilirubin Negative, Urine Urobilinogen 0.2, Ur Leukocyte Esterase Negative, Urine RBC None, Urine WBC Occasional, Ur Squamous Epith Cells 3-5, Amorphous Sediment 1+, Urine Bacteria Trace 10/02/24 11:35 10/02/24 11:35 Orders (Tests/Meds): ED MEDICATIONS Discontinued Medications Generic Name Dose Route Start Last Admin Trade Name Mor PRN Reason Stop Dose Admin Ketorolac Tromethamine 15 mg 10/02/24 11:54 10/02/24 12:04 Ketorolac 30mg/Ml Vial IV 10/02/24 11:55 15 mg ONCE ONE Administration Magnesium Hydroxide 30 ml 10/02/24 11:54 10/02/24 12:04 Milk Of Magnesia 30ml Udc PO 10/02/24 11:55 30 ml ONCE ONE Administration Ondansetron HCl 4 mg 10/02/24 11:54 10/02/24 12:03 Ondansetron 4mg/2ml Vial IV 10/02/24 11:55 4 mg ONCE ONE Administration ORDERS Category Date Time Status CRP [C-Reactive Protein] Stat Lab 10/02/24 11:35 Completed Complete Blood Count Auto Diff Stat Lab 10/02/24 11:35 Completed Comprehensive Metabolic Panel Stat Lab 10/02/24 11:35 Completed ESR [Erythrocyte Sedimentation Rate] Stat Lab 10/02/24 11:35 Completed HCG,Quantitative Stat Lab 10/02/24 11:35 Completed Lactic Acid Stat Lab 10/02/24 11:35 Completed Lipase Stat Lab 10/02/24 11:35 Completed Urinalysis and Microscopic Stat Lab 10/02/24 11:35 Completed Medical Decision Narrative: This is a 24-year-old female presenting with left lower quadrant abdominal pain. Patient states she was here couple days ago and sent home with presumed ovarian cyst after large workup. States that she has not had a bowel movement in 2 to 3 days at this point, having left lower quadrant abdominal cramping and pain. No fevers, blood in the stool, but she is nauseated without vomiting. Pain is moderate, does not radiate, associated with decreased p.o. intake. No longer having vaginal bleeding, although she did for about 3 days from Tuesday until now. No urinary complaints. Has been taking Tylenol, this does not seem to help. History obtained the patient. On arrival, no acute distress. Patient very well-appearing. Obese. Abdomen is soft, tender in left lower quadrant with mild tenderness. No rebound, rigidity, or guarding. Some left flank tenderness as well. No overlying skin changes. Differential includes PUD, gastritis, enteritis, gastroenteritis, pancreatitis, SBO, colitis, diverticulitis, nephrolithiasis, UTI, , cholecystitis, choledocholithiasis, appendicitis, hepatitis, torsion, aortic pathology, mesenteric ischemia among others. Patient placed on continuous pulse oximetry and cardiac monitoring with initial blood pressure 122/90, heart rate 80, O2 sat 100% on room air. Patient afebrile at 98.2. Patient given Toradol 15 mg for management. On reevaluation, patient states that she is feeling mildly better, still needs to have a bowel movement. Workup independently interpreted and relayed to patient. Normal CBC, nonactionable CMP, negative lactic acid, negative lipase and hCG. Urinalysis without concern for UTI, hematuria, stone, etc. conversation had with patient regarding utility of imaging. With negative CT scan, normal ultrasound without cysts, etc., I feel no imaging is deemed necessary at this time, although repeat CT of the abdomen and pelvis was considered. Risks of radiation do not outweigh potential benefit given normal labs, soft abdomen, no evidence of peritonitis and no overlying skin changes, well-appearing patient. Patient able to have bowel movement, states that relieved a lot of the pressure, but still having some pain. I am unsure what is causing her pain, but I feel that I have sufficiently ruled out life-threatening abnormalities at this time. Because patient at baseline without signs or symptoms of clinical decompensation, deemed appropriate for discharge. Results were relayed to patient who voiced understanding and were agreeable to outpatient management and follow up. I discussed my clinical impression with patient and answered all questions. At this time, the evidence for any other entities in the differential is insufficient to warrant any further testing or ED observation. This was explained as well. Advisory was given that persistent or worsening symptoms require further evaluation. I confirmed the understanding of this discussion. Accounting Generalist disclaimer Much of this encounter note is an electronic police matron spoken language to printed text. Electronic police matron of the spoken language may permit errors. Although I have reviewed the note, some errors may still exist. Critical Care Critical Care Time Critical Care Time: No
[2024-10-02 11:57] LABS: Microscopic, Urine URINE MICROSCOPIC (MICROSCOPIC)
[2024-10-02 12:02] LABS: Appearance,Urine CLEAR (Clear); Basophils # 0.1 K/mm3 (0-0.2); Basophils % 0.9 % (0.1-2.0); Bilirubin,Urine Negative (Negative); Blood, Urine Negative (Negative); Color,Urine YELLOW (Yellow); Eosinophils # 0.3 K/mm3 (0.0-0.4); Eosinophils % 2.6 % (0.1-12.0); Glucose,Urine (UA) Negative (Negative); Hematocrit 44.9 % (37.0-47.0); Ketones,Urine Negative (Negative); Leukocyte Esterase,Urine Negative (Negative); Lymphocytes # 3.4 K/mm3 (0.7-4.5); Lymphocytes % 33.1 % (10-50); Mean Corpuscular HGB Conc 33.4 g/dL (31.8-35.4); Mean Corpuscular Volume 89.8 fl (81-99); Monocytes # 0.4 K/mm3 (0.1-1.0); Monocytes % 3.8 % (1.7-9.3); Neutrophils # 6.2 K/mm3 (1.8-7.8); Neutrophils % 59.6 % (37.0-80.0); Nitrate,Urine Negative (Negative); PH,Urine 6.5 (5.0-8.5); Platelet Count 256 K/mm3 (142-424); Protein,Urine Negative (Negative); Red Cell Distribution Width 12.5 % (11.5-17.5); Urobilinogen,Urine 0.2 EU/dl (0.2); White Blood Count 10.3 K/mm3 (4.8-10.8)
[2024-10-02] MEDS: ONDANSETRON 4MG/2ML VIAL 4 MG IV (12:03)
[2024-10-02] MEDS: KETOROLAC 30MG/ML VIAL 15 MG IV (12:04)
[2024-10-02] MEDS: MILK OF MAGNESIA 30ML UDC 30 ML PO (12:04)
[2024-10-02 12:09] LABS: Lactic Acid 0.7 mmol/L (0.7-2.1)
[2024-10-02 12:11] LABS: Albumin Level 4.4 g/dl (3.5-5.0); Amorphous Sediment,Urine 1+ /lpf; Bacteria,Urine Trace /lpf; Chloride 108 mmol/L (98-107); Potassium 4.5 mmoL/L (3.5-5.1); Sodium 141 mmol/L (136-145); WBC,Urine Occasional #/hpf (0-3)
[2024-10-02 12:13] LABS: Blood Urea Nitrogen 10 mg/dl (7-17); Creatinine Clearance Estimated 208 mL/min (50-200); Estimated Glomerular Filt Rate 105 ml/min (>60); GFR (African American) 127 ML/MIN (>60); Lipase 63 U/L (23-300)
[2024-10-02 12:14] LABS: Alanine Aminotransferase 19 U/L (12-78); Albumin/Globulin Ratio 1.5 (1.1-1.8); Alkaline Phosphatase 59 U/L (38-126); Anion Gap 8.5 mEq/L (5-15); Aspartate Amino Transferase 29 U/L (14-36); Bilirubin,Total 0.4 mg/dl (0.2-1.3); Calcium 9.4 mg/dl (8.4-10.2); Carbon Dioxide 29 mmol/L (22.0-30.0); Glucose 105 mg/dl (74-100); Total Protein,Serum 7.4 g/dl (6.3-8.2)
[2024-10-02 12:20] LABS: C-Reactive Protein 7.8 mg/L (0-4)
[2024-10-02 12:36] LABS: HCG,Quantitative < 2 mIU/ml (0-5.42)
[2024-10-02 12:45] LABS: Erythrocyte Sedimentation Rate 12 mm/hr (0-20)
[2024-10-02 13:23] VITALS: BP 112/86; PULSE 62; O2SAT 99
[2024-10-02 13:40] VITALS: BP 128/80; PULSE 78; RESP 16; TEMP 36.6; O2SAT 98
== END 2024-10-02 13:42 | disposition home or self-care (01) ==
PROVIDERS: Emergency Provider Emergency Medicine; PCP Student in an Organized Health Care Education/Training Program
DX: R10.32 Left lower quadrant pain (principal)
CPT/HCPCS: 80053; 81001; 83605; 83690; 84702; 85025; 85651; 86140; 96374; 96375; 99284; J1885; J2405

== ENCOUNTER 2024-12-24 11:39 | Outpatient (CLI) | payer OTHER, SELFPAY ==
[2024-12-24 14:06] LABS: 25-OH Vitamin D, Total 19.1 ng/mL (30-100)
== END 2024-12-24 23:59 | disposition home or self-care (01) ==
LOC: LAB 11:40
PROVIDERS: PCP Student in an Organized Health Care Education/Training Program; Visit Provider Obstetrics & Gynecology
DX: N92.6 Irregular menstruation, unspecified (principal)
CPT/HCPCS: 36415; 82306

== ENCOUNTER 2025-06-20 16:01 | Outpatient (CLI) | payer OTHER, SELFPAY ==
--- OUTSIDE RECORDS SUMMARY | 2024-06-02 05:00 | XMS_ITS ---
Author Organization [facility] Address [address] [place] [address] Care Team Providers Care Activities Specialist Name Role Phone Migration, Provider Unavailable Unavailable Allergies Allergen (clinical drug ingredient) Drug/Non Drug Allergy documented on EMR Reaction Allergy Type Onset Date Status Medications: NO KNOWN DRUG ALLERGIES (uncoded) Unspecified Allergy Active Medications Medication SIG (Take, Route, Frequency, Duration) Notes Start Date End Date Status Ondansetron tablets oral 02/16/2021 Acti ve oral Active Social History Tobacco Use: Social History Observation Description Date Smoking Status WARNING: Information temporarily unavailable Social History Drugs/Alcohol: Social Info Question Answer Notes Drugs Marijuana? Former 02/02/2021 - stopped w/ Pt used to smoke Alcohol Screen Did you have a drink containing alcohol in the past year? Never 02/02/2021 - Household: Social Info Question Answer Notes Household Marital status: Dating Tobacco Use: Social Info Question Answer Notes Tobacco Control (Standard) Tobacco use: Never 0 02/02/2021 - Additional Details Category Social Info Options Details Miscellaneous: Exercise: Minimal Amoun t of Exercise (Once weekly or less) Travel outside of the [place]: Travel History: Uses seat belts Encounters Encounter Location Date Provider Diagnosis [facility] [address] [place] [address] 06/02/2024 Provider Migration Plan Of Treatment No Information Progress Notes * Doug DAVALOS:2000 ([age] yo F)Acc No.[id number]:06/02/2024 Patient: Marianela GIBBS :2000 A ge:23 Y S ex:Female Address:[address] [place] [address] [place], [address] Subjective: * Chief Complaints: * Medical History: Anxiety Depression Stillborn, 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 * OB History: P regnancy History (GPA) T otal Pregnancies 2 , F ull Term 0 , P remature?1, A B. Induced 0 , A B. Spontaneous 0 , E ctopics 0 , M ultiple Births 0 , L iving 0 . G P G ravida: 2 , P jessenia: 1 . P regnancy # 1: A nesth :Epidural BirthDate :10/10/2018 BirthLbs :2 BirthOzs :5 Comment :Stillborn due to complications from CMV Weight: 2-5 DeliveryType :Vaginal GA :26 LaborLength :48 Place [facility] PTL :N Sex :F. * Surgical History: Knee surgery both knees: donor ligament and screws due to hx of dislocation * Family History: F amily History Verified.. Father: Diabetes Mellitus, Type II, Blood Clots in Legs (s), Grandfather (paternal): Stroke (cerebrovascular), Grandmother (maternal): Bone And Articular Cartilage Neoplasm, Malignant, , Grandmother (paternal): Hypertension, Benign Essential, Mother: Family history of seizures, Sister: Family History of Leukemia, Age of Onset: 29, current. * Social History: T obacco Use: T obacco Control (Standard) T obacco use: N ever 02/02/2021 -. D rugs/Alcohol: D rugs M arijuana? F ormer 02/02/2021 - stopped w/ Pt used to smoke. A lcohol Screen D id you have a drink containing alcohol in the past year? N ever 02/02/2021 -.? M iscellaneous: E xercise: Minimal Amount of Exercise (Once weekly or less). Travel outside of the [place]: Travel History: Uses seat belts. H ousehold: H ousedelfin M arital status: Dating. * Medications: T akingOndansetron tablets oral ( Vit-Fe Fumarate-FA) oral Taking Ondansetron tablets oral Taking ( Vit-Fe Fumarate-FA) oral * Allergies: M edications: NO KNOWN DRUG ALLERGIES: Unspecified - AllergyyesAllergies Verified. * * Date:
--- OUTSIDE RECORDS SUMMARY | 2025-06-20 16:04 | XMS_ITS | Encounter Summary ---
Author Organization [place] [address] Care Team Providers Care Agricultural Technical Officer Name Role Phone Ruby Monique APRN Unavailable [phone] Donaldo Nam PA-C Unavailable [phone] Alvaro Prado MD Primary Care Provider [phone] Soledad Friend PROGRAM ELIGIBILITY SPECIALIST Unavailable Unavailable Nelsy oBbo APRN Primary Care Provider [phone] Pily Steele PROGRAM ELIGIBILITY SPECIALIST Unavailable Unavaila ble Encounter Details Date Type Department Care Team (Late st Contact Info) Description 10/10/2020 Orders Only [facility] [address] [place], [place] [id number] Denis Calix MD Social History Tobacco Use Types Packs/Day Years Used Date Smoking Tobacco: Never Smokeless Tobacco: Never Alcohol Use Standard Drinks/Week Comments No 0 (1 standard drink = 0.6 oz pur e alcohol) Overall Financial Resource Strain (CARDIA) Ans[place] r Date Recorded Difficulty of Paying Living Expenses Not hard at all 06/23/2020 Hunger Vital Sign Answer Date Recorded Within the past 12 months, y ou worried that your food would run out before you got the money to buy more. Sometimes true Within the past 12 months, t he food you bought just didn't last and you didn't have money to get more. Sometimes true PRAPARE - Transportation Answer Date Re corded Lack of Transportation (Medical) No 06/23/2020 Lack of Transportation (Non-Medical) No 06/23/2020 Sexually Active Control Partners Comments Yes Male Comments No Sex and Gender Information Value Date Recorded Sex Assigned at Not on file Legal Sex Female 5:50 AM EDT Gender Identity Not on file Sexual Orientation Not on file COVID-19 Exposure Response Date Recorded In the last month, have you been in contact with someone who was confirmed or suspected to have Coronavirus / COVID-19? No / Unsure 10/09/2020 9:54 AM EST documented as of this encounter Plan of Treatment Not on file documented as of this encounter Goals Goal Patient Goal Type Associated Problems Recent Progress Patient-Stated? Author Maintain a healthy diet, exercise regularly and maintain an ideal body weight General No Grant Toussaint MA documented as of this encounter Procedures Procedure Name Priority Date/Time Associated Diagnosis Comments NEOGENOMICS CMV BY IHC Routine 10/10/2020 1:47 PM EST documented in this encounter Results * NEOGENOMICS CMV BY IHC (10/10/2020 1:47 PM EST) [facility] Result H&E (Comments) = A) Placenta, Delivery: - Mature Placenta, 209 gm, Normal Villous Architecture For Gestational Age. CMV by IHC (Control Statement) = All controls were reviewed and showed appropriate positive and negative immunoreactivity . CMV by IHC (Image Analysis Statement) = Stains were scored by a pathologist using manual microscopy. [facility] 10/10/2020 1:47 PM EST Narrative [facility] - 10/21/2020 10:22 AM EST Requesting Provider: Libby Gutierrez Specimen = [id number] us Denis Calix MD PATHOLOGY ORDERABLES Final Res ult [facility] [address] [place] [address] documented in this encounter Visit Diagnoses Not on filedocumented in this encounter Additional Health Concerns Infection Onset Date Last Indicated Resolved Time R/O COVID-19 05/18/202105/1805/18/2021 05/18/2021 6:41 PM EDT documented as of this encounter Care Teams Agricultural Technical Officer Relationship Specialty Start Date End Date Alvaro Prado MD [address] [place] [address] PCP - General Family Medicine 01/12/18 07/12/23 Nelsy Bobo APRN [facility] [address] [place], [place] [id number] PCP - General Nurse Practitioner-Family 07/13/23 Ruby Monique APRN [address] [place] [id number] Nurse Practitioner 12/10/16 Donaldo Nam PA-C [address] [place] [address] Physician Applications Engineer Manufacturing Physician Applications Engineer Manufacturing 01/12/18 Soledad Friend LCSW Drawing In Machine Tender 02/13/21 07/08/21 Pily Steele LCSW Drawing In Machine Tender 08/24/23 11/24/23 documented as of this encounter
--- OUTSIDE RECORDS SUMMARY | 2025-06-20 16:04 | XMS_ITS | Patient Health Record ---
Author Organization [facility] Address [address] [place] [address] Care Team Providers Care Associate Quality Engineer Name Role Phone Migration, Provider Unavailable Unavailable Allergies Allergen (clinical drug ingredient) Drug/Non Drug Allergy documented on EMR Reaction Allergy Type Onset Date Status Medications: NO KNOWN DRUG ALLERGIES (uncoded) Unspecified Allergy Active Reason For Referral No Information Medications Medication SIG (Take, Route, Frequency, Duration) [...] [place]: Travel History: Uses seat belts Plan Of Treatment No Information Medical (General) History Medical History History ICD Code Anxiety Depression Stillborn, 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
--- OUTSIDE RECORDS SUMMARY | 2025-06-20 16:05 | XMS_ITS | Clinical Summary ---
Author Organization [facility] Address [address] [place] [address] Phone Care Team Providers Care Senior Sales Representative Name Role Phone Ruby Monique APRN Unavailable Donaldo Nam PA-C Unavailable [phone] Nelsy Bobo APRN Primary Care Provider Allergies Active Allergy Reactions Criticality Noted Date Comments No Known Allergies 12/10/2016 Medications citalopram (CELEXA) 20 mg Oral TabletIndications :Anxiety and depression Take 1 Tablet by mouth daily. 90 Tablet 3 3 Active Additional Information Patient not taking.Reason: Therapy Completed, Reported on 12/04/2024 hydrOXYzine (VISTARIL) 25 mg Oral CapsuleIndication s:Anxiety and depression Take 1 Capsule by mouth 3 times daily as needed. 30 Capsule 3 Active Additional Information Patient not taking.Reason: Therapy Completed, Reported on 12/04/2024 Norelgestrom-Ethi nyl Estradiol (XULANE) 150-35 mcg/24 hr TD Patch WeeklyIndications :Contraceptive use education,Encount er for initial prescription of transdermal patch hormonal contraceptive device Place 1 Patch onto the skin once a week. 3 Patch 11 3 Active Additional Information Patient not taking.Reason: Therapy Completed, Reported on 12/04/2024 ibuprofen (ADVIL;MOTRIN) 800 mg Oral Tablet Take 1 Tablet by mouth every 8 hours as needed for Pain. 90 Tablet 2 4 Active Cholecalciferol, Vitamin D3, 25 mcg (1,000 unit) Oral Capsule take 1 capsule orally once daily 4 Active Active Problems Problem Noted Date Diagnosed Date History of recurrent UTI (urinary tract infectio n) 12/04/2024 Tobacco use 12/04/2024 Blood type, Rh negative 07/13/2023 History of miscarriage 07/13/2023 Anxiety and depression 07/13/2023 Overview (09/06/2023): Zoloft ineffective. Trial celexa Grief reaction 07/13/2023 Overview (07/13/2023): Lost sister due to leukemia Good support system Obesity, Class I, BMI 30-34.9 07/13/2023 Overview (07/13/2023): Diet/exercise. 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 Marijuana user 03/10/2021 Resolved Problems Problem Noted Date Diagnosed Date Resolved Date Pyelonephritis 12/04/2024 12/04/2024 Spontaneous in second trimester 12/04/2024 12/04/2024 Syncope 12/04/2024 12/04/2024 Gestational hypertension, third trimester 07/23/2021 12/04/2024 Overview (12/04/2024): 07/23/2021 - BP 144/86 -> 156/90, preE labs ordered Close follow up ordered 08/10/2021 - 142/90->132/84 08/12/2021 - 126/82 08/17/2021 - 142/86 labor 07/20/2021 12/04/2024 Overview (12/04/2024): S/p BMZ x2 07/20- CVX 2/50/-3, posterior CVX 2.5/80/-3, posterior 30 weeks gestation of 06/21/2021 07/13/2023 Lumbar strain 05/16/2021 07/13/2023 24 weeks gestation of 05/10/2021 07/13/2023 Second trimester bleeding 05/10/2021 History of IUFD 03/10/2021 12/04/2024 Overview (12/04/2024): 09/2020: At 27 weeks due to acute CMV infection and hydrops demise affecting delivery 10/09/2020 10/15/2020 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 25 weeks gestation of 09/26/2020 11/07/2020 History of amniocentesis 09/24/202005/2021 Homeless 06/23/2020 11/07/2020 Rh negative state in antepartum period 06/23/2020 11/07/2020 Anxiety 06/23/2020 11/07/2020 Patellar dislocation 12/10/2014 025 Right knee injury 10/12/2014 06/23/2020 Decreased movements in third trimester 07/13/2023 Immunizations Immunization Administration Dates Next Due DTaP 06/21/2006, 3,2002,10/01,2002 DTaP, Unspecified Formulation 07/31/2003 HPV 9 Valent 09/07/2018 Hep B/HiB 07/31/2003 Hepatitis A, Ped/Adol, 2 Dose 09/07/2018 Hepatitis A, Unspecified Formulation 05/13/2008 Hepatitis B, Unspecified Formulation 07/31/2003, 2002,2002 HiB, Unspecified Formulation 07/31/2003,10/01/20 02,2002 IPV 06/21/2006, 3,2002,07/30 Influenza Vaccine Quadrivalent PF 09/07/2018 LAST MANUFACTURED 2011-Pneum ococcal Conjugate 7 Valent 06/21/2006,2002,2002,07/30 MMR 06/21/2006,07/31/2003 Meningococcal Conjugate 09/07/2018,06/28/2013 Rho (D) Immune Globulin 02/10/2021,09/24/2020 Tdap 06/28/2013 Varicella 05/13/2008,07/31/2003 Surgical History Surgery Date Site/Laterality Comments ORTHOPEDIC SURGERY 2016 & 2018 donor ligament bilat knees Medical History Medical History Date Comments Patellar dislocation 12/10/2014 History of IUFD 03/10/202109/2020: At 27 w eeks due to acute CMV infection and hydrops Hydrops fetalis 10/07/2020 CMV (cytomegalovirus infection) (HCC) 10/07/2020 labor 07/20/2021 S/p BMZ x2 07/20- CVX 2/50/-3, posterior CVX 2.5/80/-3, posterior Gestational hypertension, th ird trimester 07/23/2021 07/23/2021 - BP 144/86 -> 156 /90, preE labs ordered Close follow up ordered 08/10/2021 - 142/90->132/84 08/12/2021 - 126/82 08/17/2021 - 142/86 Pyelonephritis 12/04/2024 Family History Medical History Relation Name Comments Miscarriages / Stillbirths Daughter 2 Diabetes Father Lung Cancer Maternal Grandmother Seizures Mother Arthritis Paternal Grandmother Heart Disease Paternal Grandmother Leukemia Sister Miscarriages / Stillbirths Son [facility] Relation Name Status Comments Daughter 1 Alive Daughter 2 Father Alive Maternal Grandfather Maternal Grandmother Mother Alive Paternal Grandfather Paternal Grandmother Alive Sister Son Social History Tobacco Use Types Packs/Day Years Used Date Smoking Tobacco: Former Cigarettes 0.5 2.2 1 10/31/2021 - 11/20/2024 Smokeless Tobacco: Never Tobacco Cessation:Counseling Given: Not Answered Alcohol Use Standard Drinks/Week Comments No 0 (1 standard drink = 0.6 oz pur e alcohol) [facility] Utilities Answer Date Recorded In the past 12 months has th e electric, gas, oil, or water company threatened to shut off services in your home? No 09/06/2023 Social Connection and Isolat ion Panel [NHANES] Answer Date Recorded In a typical week, how many times do you talk on the phone with family, friends, or neighbors? More than three times a week 09/06/2023 How often do you get togethe r with friends or relatives? More than three times a week 09/06/2023 How often do you attend chur ch or evangelical services? Never 09/06/2023 Do you belong to any clubs o r organizations such as jewish groups, unions, fraternal or athletic groups, or school groups? No 09/06/2023 How often do you attend meet ings of the clubs or organizations you belong to? Never 09/06/2023 Are you , , di vorced, , never , or living with a partner? Living with partner 09/06/2023 AUDIT-C Answer Date Recorded Q1: How often do you have a drink containing alc ohol? 2-4 times a month 09/06/2023 Q2: How many drinks containi ng alcohol do you have on a typical day when you are drinking? 3 or 4 09/06/2023 Q3: How often do you have si x or more drinks on one occasion? Never 09/06/2023 Overall Financial Resource Strain (CARDIA) Answe r Date Recorded How hard is it for you to pa y for the very basics like food, housing, medical care, and heating? Not hard at all 09/06/2023 PHQ-2 Answer Date Recorded PHQ-2 Total Score 2 09/06/2023 [facility] - Occupational Stress Questionnaire Answer Date Recorded Do you feel stress - tense, restless, nervous, or anxious, or unable to sleep at night because your mind is troubled all the time - these days? To some extent 09/06/2023 Exercise Vital Sign Answer Date Recorde d On average, how many days pe r week do you engage in moderate to strenuous exercise (like a brisk walk)? 7 days 09/06/2023 On average, how many minutes do you engage in exercise at this level? 30 min 09/06/2023 Hunger Vital Sign Answer Date Recorded Within the past 12 months, y ou worried that your food would run out before you got the money to buy more. Never true 09/06/20 23 Within the past 12 months, t he food you bought just didn't last and you didn't have money to get more. Never true 09/06/2023 PRAPARE - Transportation Answer Date Re corded In the past 12 months, has l ack of transportation kept you from medical appointments or from getting medications? No 04/2023 In the past 12 months, has l ack of transportation kept you from meetings, work, or from getting things needed for daily living? No 09/06/2023 Housing Stability Vital Sign Answer Víctor e Recorded In the last 12 months, was t here a time when you were not able to pay the mortgage or rent on time? No 09/06/2023 In the last 12 months, how many places have you lived? 1 09/06/2023 In the last 12 months, was t here a time when you did not have a steady place to sleep or slept in a jail (including now)? No 09/06/2023 Sexually Active Control Partners Comments Yes Male Comments No Sex and Gender Information Value Date Recorded Sex Assigned at Not on file Legal Sex Female 5:50 AM EDT Gender Identity Not on file Sexual Orientation Not on file Obstetrics History Para Term AB IAB SAB Ectopic Multiple Livin g Live Births 2 1 1 0 Date Outcome GA Total Labor Labor/2nd/3rd Weight Sex Type Anes PTL Sandra A1 A5 Name Clin 020 27w 0d 0h 02m 0h 02m 2 lb 5 oz (1.049 kg) F Vag-S pont None N Demise 0 0 WHITE ,MOO GIRL FD [facility], Breann cabrera MD Complications:IUFD at 20 wee ks or more of gestation Delivery [facility] Comments:IUFD Last Filed Vital Signs Vital Sign Reading Time Taken Comments Blood Pressure 132/88 12/04/2024 4:55 PM EST Pulse 118 12/04/2024 5:44 PM EST Temperature 36.9 C (98.4 F) 12/04/2024 4:55 PM EST Respiratory Rate 18 12/04/2024 4:55 PM EST Oxygen Saturation 99% 12/04/2024 5:44 PM EST Inhaled Oxygen Concentration - - Weight 105.7 kg (233 lb) 12/04/2024 4:55 PM EST Height 172.7 cm (5' 8 ) 12/04/2024 4:55 PM EST Body Mass Index 35.43 12/04/2024 4:55 PM EST Plan of Treatment Health Maintenance Due Date Last Done Comments Meningococcal B Vaccine (1 of 2 - Standard) 2018 HPV (2 - 3-dose series) 10/05/2018 09/07/2018 COVID-19 Vaccine ( season) 2024 Annual Wellness Exam 07/13/2024 07/13/2023 Chlamydia Screening 08/18/2024 08/18/2023, Influenza Vaccine (#1) 2025 07/27/2021, 2017 Cervical Cancer Screening 08/18/2026 Pap Smear 08/18/2026 08/18/2023 DTaP/TDaP/Td (8 - Td or Tdap) 06/22/2031 06/22/2021, 06/28/2013, 06/21/2006, Additional history exists Hepatitis B Vaccine Completed 07/31/2003, 07/31/2003, 2002, Additional history exists Pneumococcal Vaccine 0-49 Aged Out 2005, 2002, 2002, Additional history exists No longer eligible based on patient's age to complete this topic Goals Goal Patient Goal Type Associated Problems Recent Progress Patient-Stated? Author Maintain a healthy diet, exercise regularly and maintain an ideal body weight General No Grant Toussaint MA Stay Tobacco Free Lifestyle No Erika Cisneros Procedures Procedure Name Priority Date/Time Associated Diagnosis Comments GC CHLAMYDIA THIN PREP Routine 08/18/2023 2:01 PM EDT Pelvic pain Vaginal discharge Cervical cancer screening SYSTEM CONFIGURATION SPECIALIST CYTOLOGY REQUEST (PAP ONLY) Routine 08/18/2023 2:01 PM EDT Pelvic pain Vaginal discharge Cervical cancer screening from Last 3 Months or Most Recently Relevant to Health Maintenance Results * SYSTEM CONFIGURATION SPECIALIST CYTOLOGY REQUEST (PAP ONLY) (08/18/2023 2:01 PM EDT) CASE REPORT Gynecologic Cytology Report Case: [id number] Authorizing Provider: Nelsy Bobo APRN Collected: 08/18/2023 1401 Ordering Location: [facility] [place] Received: 08/18/2023 1401 First Screen: Stef Rodriguez CT Specimen: LIQUID-BASED PAP - CERVICAL/ENDOCERV ICAL, Cervix, Endocervical 08/23/2023 12:04 PM EDT [facility] PAP FINAL DIAGNOSIS Negative for intraepithelial lesion or malignancy 08/23/2023 12:04 PM EDT [facility] at 1204 EDT MICROSCOPIC DESCRIPTION Microscopic examination is performed and the findings corroborate the diagnosis. 08/23/2023 12:04 PM EDT [facility] PAP SMEAR ADEQUACY Satisfactory for evaluation 08/23/2023 12:04 PM EDT [facility] ENDOCERVICAL T-ZONE Transformation zone present 08/23/2023 12:04 PM EDT [facility] EMBEDDED IMAGES 12:04 PM EDT [facility] PAP DISCLAIMER The Pap Smear is a screening test that aids in the detection of cervical cancer and cancer precursors. Both false positive and false negative results can occur. The test should be used at regular intervals, and positive results should be confirmed before definitive therapy. Processed using the ThinPrep Meter/Relay Craftsman Automated cytology screening device (Wiztango). 08/23/2023 12:04 PM EDT [facility] Thin Prep ENDOCERVICAL STRUCTURE / Unknown 08/18/2023 2:01 PM EDT 08/18/2023 2:01 PM EDT us Nelsy Bobo APRN CYTOLOGY ORDERABLES Final R esult [facility] [address] [place] [address] * GC CHLAMYDIA THIN PREP (08/18/2023 2:01 PM EDT) Chlamydia trachomatis Not Detected Not Detected 08/19/2023 2:12 PM EDT [facility] Neisseria gonorrhoeae Not Detected Not Detected 08/19/2023 2:12 PM EDT [facility] [employer] [facility] Thin Prep SPECIMEN FROM UTERINE CERVIX / Unknown 08/18/2023 2:01 PM EDT 08/18/2023 2:01 PM EDT Narrative [facility] [employer] [facility] - 08/19/2023 2:12 PM EDT Testing methodology is ecology teacher mediated amplification (TMA) using the Aptima Combo 2 assay from [employer]. A negative result does not completely rule out a Chlamydia trachomatis or Neisseria gonorrhoeae infection due to potential inhibitors or levels present below the limit of detection by this assay. Results are dependent on proper collection and transport of specimen. This test is indicated for medical purposes only and should not be used for legal or forensic purposes. The performance characteristics of this assay were validated by the testing laboratory. This assay is FDA cleared to test the following specimens: clinician-collected endocervical, vaginal, male urethral swab specimens, rectal swabs, and throat/pharyngeal swabs; patient collected vaginal specimens within a clinic setting; Thin Prep Specimens in PreservCyt Solution; and first-stream, unpreserved male and female urine specimens. Detailed methodology is available upon request. Nelsy Bobo APRN MICROBIOLOGY - GENERAL ZORAN [place] Final Result [facility] [employer] [facility] [address] [place] [id number] from Last 3 Months or Most Recently Relevant to Health Maintenance Insurance AETNA POS [facility] [address] [facility] [address] Advance Directives For more information, please contact: [phone] * Full Code (Latest Code Status on File) Date Activated Date Inactivated Comments 10/09/2020 7:19 AM 10/11/2020 8:46 PM Care Teams Senior Sales Representative Relationship Specialty Start Date End Date Nelsy Bobo APRN [address] [place] [address] PCP - General Nurse Practitioner-Family 07/13/23 Ruby Monique APRN [address] [place] [address] Nurse Practitioner 12/10/16 Donaldo Nam, PA-C [address] [place] [address] [place] [address] Physician Art Museum Aide Physician Art Museum Aide 01/12/18
== END 2025-06-20 23:59 | disposition home or self-care (01) ==
LOC: LAB 16:02
PROVIDERS: Visit Provider Obstetrics & Gynecology
DX: Z32.01 Encounter for pregnancy test, result positive (principal)
CPT/HCPCS: 36415; 84144; 84702

== ENCOUNTER 2025-06-24 14:02 | Outpatient (CLI) | payer OTHER, SELFPAY ==
--- OUTSIDE RECORDS SUMMARY | 2024-06-02 05:00 | XMS_ITS ---
Author Organization [facility] Address [address] [place] [address] Care Team Providers Care Associate Sales Manager Name Role Phone Migration, Provider Unavailable Unavailable [...] belts Encounters Encounter Location Date Provider Diagnosis [facility] [address] [place] [address] 06/02/2024 Provider Migration Plan Of Treatment No Information Progress Notes * Doug DAVALOS:2000 ([age] yo F)Acc No.[id number]:06/02/2024 Patient: Marianela GIBBS :2000 A ge:23 Y S ex:Female Address:[address] [place] [address] [place], [address] Subjective: * Chief Complaints: * Medical History: Anxiety Depression Stillborn, 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 * [...]
--- OUTSIDE RECORDS SUMMARY | 2025-06-24 14:08 | XMS_ITS | Patient Health Record ---
Author Organization [facility] Address [address] [place] [address] Care Team Providers Care Software Configuration Engineer Name Role Phone Migration, Provider Unavailable [...] weeks 09/2020 *NO SIGNIFICANT GENETIC HISTORY 7 [place]: Self breast exam - No 7 [place]: Sexually active - Yes 7 [place]: Dairy Product Use - Yes Surgical History Surgery Date(Month/Year) Knee surgery both knees: don or ligament and screws due to hx of dislocation
--- OUTSIDE RECORDS SUMMARY | 2025-06-24 14:08 | XMS_ITS | Encounter Summary ---
Author Organization [place] [address] Care Team Providers Care Christian Education Director Name Role Phone Ruby Monique APRN Unavailable [phone] Donaldo Nam PA-C Unavailable [phone] Alvaro Prado MD Primary Care Provider [phone] Soledad Friend MECHANICAL ENGINEERING SPECIALIST Unavailable Unavailable Nelsy Bobo APRN Primary Care Provider [phone] Pily Steele MECHANICAL ENGINEERING SPECIALIST Unavailable Unavaila ble Encounter Details Date Type Department Care Team (Late st Contact Info) Description 10/10/2020 Orders Only [facility] [address] [place], [place] [id number] Denis Calix MD Social History Tobacco Use [...] EST Requesting Provider: Libby Gutierrez Specimen = [id number] us Denis Calix MD PATHOLOGY ORDERABLES Final Res ult [facility] [address] [place] [address] documented in this encounter Visit Diagnoses Not on filedocumented in this encounter Additional Health Concerns Infection Onset Date Last Indicated Resolved Time R/O COVID-19 05/18/202105/1805/18/2021 05/18/2021 6:41 PM EDT documented as of this encounter Care Teams Christian Education Director Relationship Specialty Start Date End Date Alvaro Prado MD [address] [place] [id number] PCP - General Family Medicine 01/12/18 07/12/23 Nelsy Bobo APRN [facility] [address] [place], [place] [id number] PCP - General Nurse Practitioner-Family 07/13/23 Ruby Monique APRN [address] [place] [id number] Nurse Practitioner 12/10/16 Donaldo Nam PA-C [address] [place] [address] Physician Automatic Brine Mixer Operator Physician Automatic Brine Mixer Operator 01/12/18 Soledad Friend LCSW Radio Communications Superintendent 02/13/21 07/08/21 Pily Steele LCSW Radio Communications Superintendent 08/24/23 11/24/23 documented as of this encounter
--- OUTSIDE RECORDS SUMMARY | 2025-06-24 14:09 | XMS_ITS | Clinical Summary ---
Author Organization [facility] Address [address] [place] [address] Phone Care Team Providers Care Hha Name Role Phone Ruby Monique APRN Unavailable [phone] Donaldo Nam PA-C Unavailable [phone] Nelsy Bobo APRN Primary Care Provider [...] Miscarriages / Stillbirths [facility] Relation Name Status Comments Daughter [...] drink = 0.6 oz pur e alcohol) [facility] Utilities Answer Date Recorded In the past [...] often do you attend chur ch or orthodox services? Never 09/06/2023 Do you belong to any clubs o r organizations such as orthodox groups, unions, fraternal or athletic groups, or [...] Date Recorded PHQ-2 Total Score 2 09/06/2023 [facility] - Occupational Stress [...] place to sleep or slept in a fci (including now)? No 09/06/2023 Sexually Active Control [...] 0 0 WHITE ,MOO GIRL FD [facility], Breann cabrera MD Complications:IUFD at 20 wee ks or more of gestation Delivery Location:[facility] Comments:IUFD Last Filed [...] Pelvic pain Vaginal discharge Cervical cancer screening ROLL FORGER CYTOLOGY REQUEST (PAP ONLY) Routine 08/18/2023 2:01 PM EDT Pelvic pain Vaginal discharge Cervical cancer screening from Last 3 Months or Most Recently Relevant to Health Maintenance Results * ROLL FORGER CYTOLOGY REQUEST (PAP ONLY) (08/18/2023 2:01 PM EDT) CASE REPORT Gynecologic Cytology Report Case: [id number] Authorizing Provider: Nelsy Bobo APRN Collected: 08/18/2023 1401 Ordering Location: [facility] [place] Received: 08/18/2023 1401 First Screen: Stef Rodriguez CT Specimen: LIQUID-BASED PAP - CERVICAL/ENDOCERV ICAL, Cervix, Endocervical 08/23/2023 12:04 PM EDT [facility] PAP FINAL DIAGNOSIS Negative for intraepithelial lesion or malignancy 08/23/2023 12:04 PM EDT [facility] at 1204 EDT MICROSCOPIC DESCRIPTION Microscopic examination is performed and the findings corroborate the diagnosis. 08/23/2023 12:04 PM EDT [facility] PAP SMEAR ADEQUACY Satisfactory for evaluation 08/23/2023 12:04 PM EDT [facility] ENDOCERVICAL T-ZONE Transformation zone present 08/23/2023 12:04 PM EDT [facility] EMBEDDED IMAGES 12:04 PM EDT [facility] PAP DISCLAIMER The Pap Smear is a screening test that aids in the detection of cervical cancer and cancer precursors. Both false positive and false negative results can occur. The test should be used at regular intervals, and positive results should be confirmed before definitive therapy. Processed using the ThinPrep Mobile Heavy Equipment Mechanic Automated cytology screening device ([employer]acher[employer]). 08/23/2023 12:04 PM EDT [facility] Thin Prep ENDOCERVICAL STRUCTURE / Unknown 08/18/2023 2:01 PM EDT 08/18/2023 2:01 PM EDT us Nelsy Bobo APRN CYTOLOGY ORDERABLES Final R esult [facility] [address] [place] [address] * GC CHLAMYDIA THIN PREP (08/18/2023 2:01 PM EDT) Chlamydia trachomatis Not Detected Not Detected 08/19/2023 2:12 PM EDT [facility] Neisseria gonorrhoeae Not Detected Not Detected 08/19/2023 2:12 PM EDT [facility] [employer] [facility] Thin Prep SPECIMEN FROM UTERINE CERVIX / Unknown 08/18/2023 2:01 PM EDT 08/18/2023 2:01 PM EDT Narrative [facility] [employer] [facility] - 08/19/2023 2:12 PM EDT Testing methodology is global marketing operations manager mediated amplification (TMA) using the Aptima Combo 2 assay from [employer]. A negative result does not completely rule [...] - GENERAL ZORAN [place] Final Result [facility] [employer] [facility] [address] [facility] [facility] [facility] [place] [id number] from Last 3 Months or Most Recently Relevant to Health Maintenance Insurance AETNA POS [facility] [address] [facility] [address] Advance Directives For more information, please contact: [phone] * Full Code (Latest Code Status on File) Date Activated Date Inactivated Comments 10/09/2020 7:19 AM 10/11/2020 8:46 PM Care Teams Hha Relationship Specialty Start Date End Date Nelsy Bobo APRN [address] [place] [address] PCP - General Nurse Practitioner-Family 07/13/23 Ruby Monique APRN [address] [place] [address] Nurse Practitioner 12/10/16 Donaldo Nam, PA-C [address] [place] [address] [place] [address] Physician Access Developer Physician Access Developer 01/12/18
[2025-06-24 14:58] LABS: 25-OH Vitamin D, Total 28.3 ng/mL (30-100)
== END 2025-06-24 23:59 | disposition home or self-care (01) ==
LOC: LAB 14:03
PROVIDERS: Visit Provider Obstetrics & Gynecology
DX: N92.6 Irregular menstruation, unspecified (principal); R53.83 Other fatigue; Z34.90 Encounter for supervision of normal pregnancy, unspecified, unspecified trimester
CPT/HCPCS: 36415; 82306; 84702

== ENCOUNTER 2025-06-26 16:29 | Outpatient (CLI) | payer OTHER, SELFPAY ==
--- OUTSIDE RECORDS SUMMARY | 2025-06-26 16:31 | XMS_ITS | Encounter Summary ---
Author Organization [place] [address] Care Team Providers Care Programmer Developer Name Role Phone Ruby Monique APRN Unavailable [phone] Donaldo Nam PA-C Unavailable [phone] Alvaro Prado MD Primary Care Provider [phone] Soledad Friend AUTO ENGINE MECHANIC Unavailable Unavailable Nelsy Bobo APRN Primary Care Provider [phone] Pily Steele AUTO ENGINE MECHANIC Unavailable Unavaila ble Encounter Details Date Type Department Care Team (Late st Contact Info) Description 10/10/2020 Orders Only [facility] [address] [place], [place] [id number] Denis Calix MD Social History Tobacco Use [...] scored by a pathologist using manual microscopy. [facility] 10/10/2020 1:47 PM EST Narrative [facility] - 10/21/2020 10:22 AM EST Requesting Provider: Libby Gutierrez Specimen = [id number] us Denis Calix MD PATHOLOGY ORDERABLES Final Res ult [facility] [address] [place] [address] documented in this encounter Visit Diagnoses Not on filedocumented in this encounter Additional Health Concerns Infection Onset Date Last Indicated Resolved Time R/O COVID-19 05/18/202105/1805/18/2021 05/18/2021 6:41 PM EDT documented as of this encounter Care Teams Programmer Developer Relationship Specialty Start Date End Date Alvaro Prado MD [address] [place] [address] PCP - General Family Medicine 01/12/18 07/12/23 Nelsy Bobo APRN COUNTRY [facility] [address] [place], [place] [id number] PCP - General Nurse Practitioner-Family 07/13/23 Ruby Monique APRN [address] [address] Nurse Practitioner 12/10/16 Donaldo Nam PA-C [address] [place] [address] Physician Motor Lodge Clerk Physician Motor Lodge Clerk 01/12/18 Soledad Friend LCSW Waste Elimination 02/13/21 07/08/21 Pily Steele LCSW Waste Elimination 08/24/23 11/24/23 documented as of this encounter
--- OUTSIDE RECORDS SUMMARY | 2025-06-26 16:32 | XMS_ITS | Clinical Summary ---
Author Organization [facility] Address [address] [place] [place] [address] Phone Care Team Providers Care Grocery Store Clerk Name Role Phone Ruby Monique APRN Unavailable Donaldo Nam PA-C Unavailable [phone] Nelsy Bobo APRN Primary Care Provider [...] Miscarriages / Stillbirths [facility] Relation Name Status Comments [...] drink = 0.6 oz pur e alcohol) [facility] Utilities Answer Date Recorded In the past [...] often do you attend chur ch or christian services? Never 09/06/2023 Do you belong to any clubs o r organizations such as jew groups, unions, fraternal or athletic groups, or [...] Date Recorded PHQ-2 Total Score 2 09/06/2023 [facility] - Occupational [...] place to sleep or slept in a usp (including now)? No 09/06/2023 Sexually Active Control [...] 0 0 WHITE ,MOO GIRL FD Loftu s-[facility], Breann cabrera MD Complications:IUFD at 20 wee ks or more of gestation Delivery Location:[facility] ([facility]) Comments:IUFD Last Filed [...] Pelvic pain Vaginal discharge Cervical cancer screening CUSTOM FEED MILL OPERATOR HELPER CYTOLOGY REQUEST (PAP ONLY) Routine 08/18/2023 2:01 PM EDT Pelvic pain Vaginal discharge Cervical cancer screening from Last 3 Months or Most Recently Relevant to Health Maintenance Results * CUSTOM FEED MILL OPERATOR HELPER CYTOLOGY REQUEST (PAP ONLY) (08/18/2023 2:01 PM EDT) CASE REPORT Gynecologic Cytology Report Case: [id number] Authorizing Provider: Nelsy Bobo APRN Collected: 08/18/2023 1401 Ordering Location: [facility] [place] Received: 08/18/2023 1401 First Screen: Stef Rodriguez CT Specimen: LIQUID-BASED PAP - CERVICAL/ENDOCERV ICAL, Cervix, Endocervical 08/23/2023 12:04 PM EDT [facility] PAP FINAL DIAGNOSIS Negative for intraepithelial lesion or malignancy 08/23/2023 12:04 PM EDT [facility] at 1204 EDT MICROSCOPIC DESCRIPTION Microscopic examination is performed and the findings corroborate the diagnosis. 08/23/2023 12:04 PM EDT [facility] PAP SMEAR ADEQUACY Satisfactory for evaluation 08/23/2023 12:04 PM EDT [facility] ENDOCERVICAL T-ZONE Transformation zone present 08/23/2023 12:04 PM EDT [facility] EMBEDDED IMAGES 12:04 PM EDT [facility] PAP DISCLAIMER The Pap Smear is a screening test that aids in the detection of cervical cancer and cancer precursors. Both false positive and false negative results can occur. The test should be used at regular intervals, and positive results should be confirmed before definitive therapy. Processed using the ThinPrep Scrip Clerk Automated cytology screening device ([employer]). 08/23/2023 12:04 PM EDT [facility] Thin Prep ENDOCERVICAL STRUCTURE / Unknown 08/18/2023 2:01 PM EDT 08/18/2023 2:01 PM EDT us Nelsy Bobo APRN CYTOLOGY ORDERABLES Final R esult [facility] [address] [place] [address] * GC CHLAMYDIA THIN PREP (08/18/2023 2:01 PM EDT) Chlamydia trachomatis Not Detected Not Detected 08/19/2023 2:12 PM EDT [facility] Neisseria gonorrhoeae Not Detected Not Detected 08/19/2023 2:12 PM EDT [facility] Thin Prep SPECIMEN FROM UTERINE CERVIX / Unknown 08/18/2023 2:01 PM EDT 08/18/2023 2:01 PM EDT Narrative [facility] - 08/19/2023 2:12 PM EDT Testing methodology is child welfare manager mediated amplification (TMA) using the Aptima Combo 2 assay from [employer]. A negative result does not completely rule [...] - GENERAL [place] Final Result [facility] [address] [facility] [place] [id number] from Last 3 Months or Most Recently Relevant to Health Maintenance Insurance AETNA POS [facility] [address] [facility] [place] [facility] [address] Advance Directives For more information, please contact: [phone] * Full Code (Latest Code Status on File) Date Activated Date Inactivated Comments 10/09/2020 7:19 AM 10/11/2020 8:46 PM Care Teams Grocery Store Clerk Relationship Specialty Start Date End Date Nelsy Bobo APRN [address] [place] [address] PCP - General Nurse Practitioner-Family 07/13/23 Ruby Monique APRN [address] [place] [address] Nurse Practitioner 12/10/16 Donaldo Nam, PA-C [address] [place] [address] [place] [address] Physician Business Machines Teacher Physician Business Machines Teacher 01/12/18
[2025-06-26 18:57] LABS: Thyroid Stimulating Hormone 0.87 uIU/mL (0.465-4.68)
[2025-06-26 21:38] LABS: Hemoglobin A1C 5.3 % (4.0-6.0)
== END 2025-06-26 23:59 | disposition home or self-care (01) ==
LOC: LAB 16:29
PROVIDERS: Visit Provider Obstetrics & Gynecology
DX: N93.9 Abnormal uterine and vaginal bleeding, unspecified (principal); R10.2 Pelvic and perineal pain; N92.6 Irregular menstruation, unspecified; R39.15 Urgency of urination
CPT/HCPCS: 83036; 84443; 84702; 87086; 87491; 87529; 87591; 87661; 87798; 87801

== ENCOUNTER 2025-06-28 17:42 | Emergency (ER) | payer OTHER, SELFPAY ==
--- OUTSIDE RECORDS SUMMARY | 2024-06-02 05:00 | XMS_ITS ---
Author Organization [facility] Address [address] [place] [address] Care Team Providers Care Compensation Supervisor Name Role Phone Migration, Provider Unavailable Unavailable [...] belts Encounters Encounter Location Date Provider Diagnosis [facility] [address] [place] [address] 06/02/2024 Provider Migration Plan Of Treatment No Information Progress Notes * Doug DAVALOS:2000 ([age] yo F)Acc No.[id number]:06/02/2024 Patient: Marianela GIBBS :2000 A ge:23 Y S ex:Female Address:[address] [place] [address] [place], [address] Subjective: * Chief Complaints: * Medical History: Anxiety Depression Stillborn, 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 * Surgical History: [...]
--- OUTSIDE RECORDS SUMMARY | 2025-06-28 18:04 | XMS_ITS | Encounter Summary ---
Author Organization [place] [address] Care Team Providers Care Bounty Hunter Name Role Phone Ruby Monique APRN Unavailable [phone] Donaldo Nam PA-C Unavailable [phone] Alvaro Prado MD Primary Care Provider [phone] Soledad Frined BOWLING PIN SETTERS INSTALLER Unavailable Unavailable Nelsy Bobo APRN Primary Care Provider [phone] Pily Steele BOWLING PIN SETTERS INSTALLER Unavailable Unavaila ble Encounter Details Date Type Department Care Team (Late st Contact Info) Description 10/10/2020 Orders Only [facility] One [facility] [address] [place], [place] [id number] Densi Calix MD Social History Tobacco Use Types [...] scored by a pathologist using manual microscopy. [facility] 10/10/2020 1:47 PM EST Narrative [facility] - 10/21/2020 10:22 AM EST Requesting Provider: Libby Gutierrez Specimen = [id number] us Denis Calix MD PATHOLOGY ORDERABLES Final Res ult [facility] [address] [place] [address] documented in this encounter Visit Diagnoses Not on filedocumented in this encounter Additional Health Concerns Infection Onset Date Last Indicated Resolved Time R/O COVID-19 05/18/202105/1805/18/2021 05/18/2021 6:41 PM EDT documented as of this encounter Care Teams Bounty Hunter Relationship Specialty Start Date End Date Alvaro Prado MD [address] [place] [address] PCP - General Family Medicine 01/12/18 07/12/23 Nelsy Bobo APRN COUNTRY [facility] [address] [place], [place] [id number] PCP - General Nurse Practitioner-Family 07/13/23 Ruby Monique APRN [address] [place] [id number] Nurse Practitioner 12/10/16 Donaldo Nam PA-C [address] [place] [address] Physician Keno Manager Physician Keno Manager 01/12/18 Soledad Friend LCSW Seed Core Operator 02/13/21 07/08/21 Pily Steele LCSW Seed Core Operator 08/24/23 11/24/23 documented as of this encounter
--- OUTSIDE RECORDS SUMMARY | 2025-06-28 18:04 | XMS_ITS | Clinical Summary ---
Author Organization [facility] Address [address] [place] [address] Phone Care Team Providers Care Scouring Machine Operator Name Role Phone Ruby Monique APRN Unavailable Donaldo Nam PA-C Unavailable [phone] Nelsy Bobo APRN Primary Care Provider [...] Miscarriages / Stillbirths [facility] Relation Name Status Comments [...] drink = 0.6 oz pur e alcohol) [facility] Utilities Answer Date Recorded In the [...] often do you attend chur ch or judaism services? Never 09/06/2023 Do you belong to any clubs o r organizations such as baptism groups, unions, fraternal or athletic groups, or [...] Date Recorded PHQ-2 Total Score 2 09/06/2023 [facility] Occupat ional Health - Occupational [...] place to sleep or slept in a care home (including now)? No 09/06/2023 Sexually Active Control [...] 0 0 WHITE ,MOO GIRL FD [facility], Breann cabrera MD Complications:IUFD at 20 wee ks or more of gestation Delivery [facility] ([facility]) Comments:IUFD Last Filed Vital [...] Pelvic pain Vaginal discharge Cervical cancer screening CHIEF OF STAFF DOCTOR CYTOLOGY REQUEST (PAP ONLY) Routine 08/18/2023 2:01 PM EDT Pelvic pain Vaginal discharge Cervical cancer screening from Last 3 Months or Most Recently Relevant to Health Maintenance Results * CHIEF OF STAFF DOCTOR CYTOLOGY REQUEST (PAP ONLY) (08/18/2023 2:01 PM EDT) CASE REPORT Gynecologic Cytology Report Case: [id number] Authorizing Provider: Nelsy Bobo APRN Collected: 08/18/2023 1401 Ordering Location: [facility] [place] Received: 08/18/2023 1401 First Screen: Stef Rodriguez CT Specimen: LIQUID-BASED PAP - CERVICAL/ENDOCERV ICAL, Cervix, Endocervical 08/23/2023 12:04 PM EDT [facility] PAP FINAL DIAGNOSIS Negative for intraepithelial lesion or malignancy 08/23/2023 12:04 PM EDT [facility] at 1204 EDT MICROSCOPIC DESCRIPTION Microscopic examination is performed and the findings corroborate the diagnosis. 08/23/2023 12:04 PM EDT [facility] PAP SMEAR ADEQUACY Satisfactory for evaluation 08/23/2023 12:04 PM EDT [facility] ENDOCERVICAL T-ZONE Transformation zone present 08/23/2023 12:04 PM EDT [facility] EMBEDDED IMAGES 12:04 PM EDT [facility] PAP DISCLAIMER The Pap Smear is a screening test that aids in the detection of cervical cancer and cancer precursors. Both false positive and false negative results can occur. The test should be used at regular intervals, and positive results should be confirmed before definitive therapy. Processed using the ThinPrep Systems Test Technician Automated cytology screening device ([employer]). 08/23/2023 12:04 PM EDT [facility] Thin Prep ENDOCERVICAL STRUCTURE / Unknown 08/18/2023 2:01 PM EDT 08/18/2023 2:01 PM EDT us Nelsy Bobo APRN CYTOLOGY ORDERABLES Final R esult [facility] 1 [place] [address] * GC CHLAMYDIA THIN PREP (08/18/2023 2:01 PM EDT) Chlamydia trachomatis Not Detected Not Detected 08/19/2023 2:12 PM EDT [facility] Neisseria gonorrhoeae Not Detected Not Detected 08/19/2023 2:12 PM EDT [facility] Thin Prep SPECIMEN FROM UTERINE CERVIX / Unknown 08/18/2023 2:01 PM EDT 08/18/2023 2:01 PM EDT Narrative [facility] - 08/19/2023 2:12 PM EDT Testing methodology is manufacturing mechanic mediated amplification (TMA) using the Aptima Combo 2 assay from [employer]. A negative result does not completely rule [...] - GENERAL ZORAN [place] Final Result [facility] [address] [facility] [address] [place] [id number] from Last 3 Months or Most Recently Relevant to Health Maintenance Insurance AETNA POS [facility] [address] [facility] POS [facility] [address] Advance Directives For more information, please contact: [phone] * Full Code (Latest Code Status on File) Date Activated Date Inactivated Comments 10/09/2020 7:19 AM 10/11/2020 8:46 PM Care Teams Scouring Machine Operator Relationship Specialty Start Date End Date Nelsy Bobo APRN [address] [place] [address] PCP - General Nurse Practitioner-Family 07/13/23 Ruby Monique APRN [address] [place] [address] Nurse Practitioner 12/10/16 Donaldo Nam, PA-C [address] [place] [address] [place] [address] Physician Au Pair Physician Au Pair 01/12/18
--- OUTSIDE RECORDS SUMMARY | 2025-06-28 18:04 | XMS_ITS | Patient Health Record ---
Author Organization [facility] Address [address] [place] [address] Care Team Providers Care Rehab Rn Name Role Phone Migration, Provider Unavailable Unavailable [...] weeks 09/2020 *NO SIGNIFICANT GENETIC HISTORY 7 [place]: Self breast exam - No 7 [place]: Sexually active - Yes 7 [place]: Dairy Product Use - Yes Surgical History Surgery Date(Month/Year) Knee surgery both knees: don or ligament and screws due to hx of dislocation
[2025-06-28 18:10] VITALS: BP 152/78; PULSE 90; RESP 16; TEMP 36.8; O2SAT 100; BMI 34.4
--- NOTE | 2025-06-28 18:19 | CT_ITS ---
PROCEDURE INFORMATION: Exam: CT Abdomen And Pelvis With Contrast Exam date and time: 06/28/2025 6:56 PM Age: 25 years old Clinical indication: Abdominal pain; Generalized TECHNIQUE: Imaging protocol: Computed tomography of the abdomen and pelvis with contrast. Total images: 344 Radiation optimization: All CT scans at this facility use at least one of these dose optimization techniques: automated exposure control; mA and/or kV adjustment per patient size (includes targeted exams where dose is matched to clinical indication); or iterative reconstruction. Contrast material: ISOVUE; Contrast volume: 75 ml; Contrast route: IV; COMPARISON: CT ABDOMEN PELVIS WO CON 09/30/2024 9:48 PM FINDINGS: Lungs: Minor bibasilar dependent atelectasis. Linear right middle lobe atelectasis or scarring. Heart: Normal heart size. Liver: Upper normal liver at 18 cm. Otherwise, unremarkable. Gallbladder and biliary ducts: Contracted gallbladder. No calcified gallstones or bile duct dilatation. Pancreas: Normal. No ductal dilation. Spleen: Normal. No splenomegaly. Adrenal glands: Normal. No mass. Kidneys and ureters: No hydronephrosis, nephrolithiasis, or renal mass. No ureteral stones. Stomach and bowel: Unremarkable stomach and duodenum. No ileus or bowel obstruction. Unremarkable small bowel and terminal ileum. Unremarkable colon and rectum. Appendix: Normal appendix. Intraperitoneal space: Unremarkable. No free air. No significant fluid collection. Vasculature: Nonaneurysmal abdominal aorta. Major abdominal vessels enhance appropriately. Lymph nodes: Unremarkable. No enlarged lymph nodes. Urinary bladder: Unremarkable as visualized. Reproductive: Physiologic uterus and ovaries. No adnexal mass. Bones/joints: Unremarkable. No acute fracture. Soft tissues: Tiny fat containing umbilical hernia. IMPRESSION: No acute intra-abdominal or pelvic process.
--- NOTE | 2025-06-28 18:21 | ED_ITS ---
<Statement entered by Baldev Mujica MD - 06/28/25 23:50> I was consulted by the MAHNAZ, and we discussed the complexity of the problems being addressed. I approved the treatment and management plan for this patient's care in the emergency department, thus performing a substantive portion of the medical decision making. Baldev Mujica MD Discharge Plan Disposition Patient Disposition: Home, Self-Care Prescriptions Prescriptions: New tranexamic acid 650 mg tablet 1,300 mg PO TID 5 Days Qty: 30 0RF Referrals Follow up/Referrals: Emma Vines DO [Staff Physician, PEDIATRIC ORTHODONTIST] - See instructions Provider,Referral, [Primary Care Provider, Medical] - See instructions Activity Restrictions/Add. Instructions Additional Instructions/Restrictions: Increase fluids and rest. Take the medication as directed. If any problems or concerns please return to the ED or talk to your INSTRUCTOR PSYCHIATRIC AIDE. Clinical Impressions Clinical Impression: Abnormal vaginal bleeding Instructions Patient Instructions: DI for Abnormal Uterine Bleeding Print Language Print Language: Bhutanese Discharge ED Provider: Baldev Mujica General Adult HPI <Rissa Chavez (ED), CRANE ENGINEER - Last Filed: 06/28/25 23:21> General Chief complaint: Vaginal Bleeding Stated complaint: Passing blood clots, LW abdomen pain Time Seen by Provider: 06/28/25 17:58 Mode of Arrival: Ambulatory Source of Information: Patient Description of Symptoms (Recalled from ER Triage Doc. by RN): Patient states she has been having heavy periods the last couple of months, has been seeing the PEDIATRIC ORTHODONTIST Dr. Rodney, having tests done. States she started bleeding last night around 2100 and passing heavy clots Patient states she is supposed to have an ultrasound done on Tuesday07/02/25. History of Present Illness HPI narrative: 25-year-old female presents to the ED today having heavy menstrual bleeding and clots. She has been seen several times by Dr. Miles. She has been having blood work done. She started bleeding and passing large clots last night. She started having pain early this morning in her low pelvis around to her back with the heavy bleeding. She is changing her pad every 30 minutes. She has had some nausea but no vomiting or diarrhea. No chills. She has had dizziness for the past couple months. She has been urinating more often than usual. She is scheduled for an ultrasound this coming week with Dr. Miles. Related Data Previous Rx's ?Medication ?Instructions ?Recorded tranexamic acid 650 mg tablet 1,300 mg (2 x 650 mg) PO TID 5 06/28/25 days #30 tabs Allergies Allergy/AdvReac Type Severity Reaction Status Date / Time No Known Allergies Allergy Verified 06/28/25 18:14 PFSH <Rissa Chavez (ED), CRANE ENGINEER - Last Filed: 06/28/25 23:21> PFS Disclaimer: The information contained in this section may have been updated after the patient was seen, as this information can be updated by other users. Medical History (Updated 06/28/25 @ 20:42 by Rissa Chavez (ED), CRANE ENGINEER) Vaginal discharge Missed period Urinary urgency Pelvic pain Irregular periods LLQ pain Anxiety Depression History of gestational hypertension Tobacco use History of stillbirth SIRS (systemic inflammatory response syndrome) Surgical History H/O knee surgery Family History Other Family history of abdominal aortic aneurysm Social History Smoking Status: Current every day smoker alcohol intake: never current occupational status: unemployed Travel in the last 8 weeks?: None Have you lived/traveled outside [place] in past 30 days?: No Contact w/someone who lives/traveled outside US past 30 days?: No Exposure to someone with infectious disease in past 14 days?: No Do you have a fever (greater than 100.4 F or 38 C)?: No Have you tested positive for COVID-19?: No Exposed to someone with COVID-19 in past 14 days?: No Do you have a sore throat?: No Do you have a cough?: No Do you have any weakness?: No Do you have any diarrhea?: No Are you experiencing any unusual bleeding?: No Do you have any muscle aches/pain?: No Do you have any abdominal pain?: No Are you experiencing loss of taste or smell?: No Other Medical History Have you received the Flu Vaccine for this season: No Have you received the Pneumonia Vaccine: No <Rissa Chavez (ED), CRANE ENGINEER - Last Filed: 06/28/25 23:21> ROS Obtained: Yes Systems reviewed as appropriate & no additional complaints except as documented Constitutional Constitutional: Reports as per HPI Physical Exam <Rissa Chavez (ED), CRANE ENGINEER - Last Filed: 06/28/25 23:21> General General appearance: alert Head Head exam: normocephalic Eye Eye exam: Present PERRL and EOMI ENT ENT exam: Present normal oropharynx and mucous membranes moist Neck Neck exam: Present full ROM and trachea midline Respiratory Respiratory exam: Present normal lung sounds bilaterally Cardiovascular Cardiovascular exam: Present regular rate, normal rhythm, normal heart sounds, +S1 and +S2 Abdominal Exam Abdominal exam: Present soft and normal bowel sounds Abdominal tenderness: Present suprapubic and mild Extremities Exam Extremities exam: Present normal inspection, full ROM and normal capillary refill Neurological Exam Neurological exam: Present alert and oriented X3 Skin Skin exam: Present warm, dry and intact Medical Decision Making <Rissa Chavez (ED), CRANE ENGINEER - Last Filed: 06/28/25 23:21> Medical Records Screening: Per USPSTF and CDC recommendations, given the prevalence of disease in our region, it is our hospital?s policy to screen for HIV and viral Hepatitis for all patients aged 18 and over and those with ongoing risk factors. Melo Inquiry Pt receiving controlled substance: No Melo was queried for this patient: No Vital Signs: 06/28/25 18:10 06/28/25 20:51 Temperature 98.3 F 98.3 F Temperature Source Oral Oral Pulse Rate 71 Pulse Rate [Right Brachial] 90 Respiratory Rate 16 18 Blood Pressure 146/93 H Blood Pressure [Right Arm] 152/78 H Blood Pressure Mean [Right Arm] 102 Blood Pressure Source [Right Arm] Automatic Cuff Blood Pressure Position [Right Arm] Sitting 02 Sat by Pulse Oximetry 100 Oxygen Delivery Method Room Air Room Air Lab Data Lab Results 06/28/25 18:00: Urine Color Yellow, Urine Appearance Sl cloudy, Urine pH 7.5, Ur Specific [place] 1.015, Urine Protein Trace, Urine Glucose (UA) Negative, Urine Ketones Negative, Urine Blood 3+ A, Urine Nitrate Negative, Urine Bilirubin Negative, Urine Urobilinogen 1.0, Ur Leukocyte Esterase Negative, Urine RBC Tntc, Urine WBC 3-5, Ur Squamous Epith Cells 3-5, Urine Bacteria 1+ 06/28/25 18:17: WBC 12.7 H, RBC 4.73, Hgb 14.2, Hct 42.1, MCV 89.0, MCH 30.0, MCHC 33.7, RDW 12.4, Plt Count 262, MPV 10.9 H, Neut % (Auto) 59.2, Lymph % (Auto) 30.7, [place] % (Auto) 6.6, Eos % (Auto) 3.1, Baso % (Auto) 0.2, Neut # (Auto) 7.5, Lymph # (Auto) 3.9, [place] # (Auto) 0.8, Eos # (Auto) 0.4, Baso # (Auto) 0.0, PT 10.3, INR 0.92, APTT 26.7, Sodium 138, Potassium 4.0, Chloride 108 H, Carbon Dioxide 24, Anion Gap 10.0, BUN 13, Creatinine 0.70, Estimated Creat Clear 197, Estimated GFR 104, Est GFR ( Amer) 125, Glucose 95, Calcium 9.0, Magnesium 1.6, Total Bilirubin 0.4, AST 32, ALT 16, Alkaline Phosphatase 48, Total Protein 7.7, Albumin 4.4, Globulin 3.3 H, Albumin/Globulin Ratio 1.3, Lipase 90, Serum HCG, Qual Negative 06/28/25 18:17 06/28/25 18:17 Orders (Tests/Meds): ED MEDICATIONS Discontinued Medications Generic Name Dose Route Start Last Admin Trade Name Shawq PRN Reason Stop Dose Admin Acetaminophen 1,000 mg 06/28/25 18:27 06/28/25 18:37 Acetaminophen 1,000mg/100ml Vial IV 06/28/25 18:28 1,000 mg ONCE ONE Administration Sodium Chloride 1,000 mls @ 999 mls/hr 06/28/25 18:19 06/28/25 19:34 Sod Chlor 0.9% 1000ml Bag IV 06/28/25 19:19 Infused .Q1H1M ONE Infusion Iopamidol 75 ml 06/28/25 18:53 06/28/25 18:54 Iopamidol-370 (76%);100ml Bottle IV 06/28/25 18:54 75 ml ONCE ONE Administration Sodium Chloride 10 ml 06/28/25 18:53 06/28/25 18:54 Sodium Chloride 0.9% 10ml Syr (Rad Only) IV 06/28/25 18:54 10 ml ONCE ONE Administration ORDERS Category Date Time Status CT abdomen pelvis w con Stat Cat Scan 06/28/25 18:19 Completed CBC [Complete Blood Count Auto Diff] Stat Lab 06/28/25 18:17 Completed Comprehensive Metabolic Panel Stat Lab 06/28/25 18:17 Completed HCG Qualitative, Serum Stat Lab 06/28/25 18:17 Completed Lipase Stat Lab 06/28/25 18:17 Completed Magnesium Stat Lab 06/28/25 18:17 Completed PT INR [Prothrombin Time INR] Stat Lab 06/28/25 18:17 Completed PTT [Activated Partial Thrombo Time] Stat Lab 06/28/25 18:17 Completed Urinalysis and Microscopic Stat Lab 06/28/25 18:00 Completed Medical Decision Narrative: patient is a 25-year-old female presenting to the emergency department for evaluation of vaginal bleeding and clots since last night with lower abdominal pain. Patient is hemodynamically stable and nontoxic-appearing upon arrival, afebrile. Differential diagnosis includes , UTI, dysfunctional uterine bleeding, among others. Workup will be conducted with hematologic labs, specific imaging, provocative tests. Initial inventions include crystalloid bolus, analgesics. Initial workup reviewed by me hematologic labs are remarkable for elevated white count 12.7, normal H&H.. Patient CT scan was normal. This was read by radiology. Patient has a negative . She does have a ultrasound scheduled for next week with Dr. Miles. I discussed with Dr. Vines who is on-call for INSTRUCTOR PSYCHIATRIC AIDE her amount of bleeding and her symptoms. Dr. Vines would like patient to do TXA 1300 mg 3 times daily for 5 days. Patient already has appointment next week with INSTRUCTOR PSYCHIATRIC AIDE. Discussed with patient. Patient safe for discharge home. <Baldev Mujica MD - Last Filed: 06/28/25 19:30> Vital Signs: 06/28/25 18:10 06/28/25 20:51 Temperature 98.3 F 98.3 F Temperature Source Oral Oral Pulse Rate 71 Pulse Rate [Right Brachial] 90 Respiratory Rate 16 18 Blood Pressure 146/93 H Blood Pressure [Right Arm] 152/78 H Blood Pressure Mean [Right Arm] 102 Blood Pressure Source [Right Arm] Automatic Cuff Blood Pressure Position [Right Arm] Sitting 02 Sat by Pulse Oximetry 100 Oxygen Delivery Method Room Air Room Air Lab Data Lab Results 06/28/25 18:00: Urine Color Yellow, Urine Appearance Sl cloudy, Urine pH 7.5, Ur Specific [place] 1.015, Urine Protein Trace, Urine Glucose (UA) Negative, Urine Ketones Negative, Urine Blood 3+ A, Urine Nitrate Negative, Urine Bilirubin Negative, Urine Urobilinogen 1.0, Ur Leukocyte Esterase Negative, Urine RBC Tntc, Urine WBC 3-5, Ur Squamous Epith Cells 3-5, Urine Bacteria 1+ 06/28/25 18:17: WBC 12.7 H, RBC 4.73, Hgb 14.2, Hct 42.1, MCV 89.0, MCH 30.0, MCHC 33.7, RDW 12.4, Plt Count 262, MPV 10.9 H, Neut % (Auto) 59.2, Lymph % (Auto) 30.7, [place] % (Auto) 6.6, Eos % (Auto) 3.1, Baso % (Auto) 0.2, Neut # (Auto) 7.5, Lymph # (Auto) 3.9, [place] # (Auto) 0.8, Eos # (Auto) 0.4, Baso # (Auto) 0.0, PT 10.3, INR 0.92, APTT 26.7, Sodium 138, Potassium 4.0, Chloride 108 H, Carbon Dioxide 24, Anion Gap 10.0, BUN 13, Creatinine 0.70, Estimated Creat Clear 197, Estimated GFR 104, Est GFR ( Amer) 125, Glucose 95, Calcium 9.0, Magnesium 1.6, Total Bilirubin 0.4, AST 32, ALT 16, Alkaline Phosphatase 48, Total Protein 7.7, Albumin 4.4, Globulin 3.3 H, Albumin/Globulin Ratio 1.3, Lipase 90, Serum HCG, Qual Negative Orders (Tests/Meds): ED MEDICATIONS Discontinued Medications Generic Name Dose Route Start Last Admin Trade Name Freq PRN Reason Stop Dose Admin Acetaminophen 1,000 mg 06/28/25 18:27 06/28/25 18:37 Acetaminophen 1,000mg/100ml Vial IV 06/28/25 18:28 1,000 mg ONCE ONE Administration Sodium Chloride 1,000 mls @ 999 mls/hr 06/28/25 18:19 06/28/25 19:34 Sod Chlor 0.9% 1000ml Bag IV 06/28/25 19:19 Infused .Q1H1M ONE Infusion Iopamidol 75 ml 06/28/25 18:53 06/28/25 18:54 Iopamidol-370 (76%);100ml Bottle IV 06/28/25 18:54 75 ml ONCE ONE Administration Sodium Chloride 10 ml 06/28/25 18:53 06/28/25 18:54 Sodium Chloride 0.9% 10ml Syr (Rad Only) IV 06/28/25 18:54 10 ml ONCE ONE Administration ORDERS Category Date Time Status CT abdomen pelvis w con Stat Cat Scan 06/28/25 18:19 Completed CBC [Complete Blood Count Auto Diff] Stat Lab 06/28/25 18:17 Completed Comprehensive Metabolic Panel Stat Lab 06/28/25 18:17 Completed HCG Qualitative, Serum Stat Lab 06/28/25 18:17 Completed Lipase Stat Lab 06/28/25 18:17 Completed Magnesium Stat Lab 06/28/25 18:17 Completed PT INR [Prothrombin Time INR] Stat Lab 06/28/25 18:17 Completed PTT [Activated Partial Thrombo Time] Stat Lab 06/28/25 18:17 Completed Urinalysis and Microscopic Stat Lab 06/28/25 18:00 Completed ECG Data Tracing #1: Independently interpreted by me rate is 83, rhythm is regular, axis is normal, no ST elevation in anatomical contiguous leads, QTc 399. Critical Care <Rissa Chavez (ED), CRANE ENGINEER - Last Filed: 06/28/25 23:21> Critical Care Time Critical Care Time: No
[2025-06-28 18:22] LABS: Microscopic, Urine URINE MICROSCOPIC (MICROSCOPIC)
[2025-06-28 18:27] LABS: Bilirubin,Urine Negative (Negative); Color,Urine YELLOW (Yellow); Glucose,Urine (UA) Negative (Negative); Ketones,Urine Negative (Negative); Leukocyte Esterase,Urine Negative (Negative); PH,Urine 7.5 (5.0-8.5); Protein,Urine TRACE (Negative); Specific Gravity, Urine 1.015 (1.005-1.030); Urobilinogen,Urine 1.0 EU/dl (0.2)
[2025-06-28 18:27] LABS: Hematocrit 42.1 % (37.0-47.0); Hemoglobin 14.2 g/dL (12.2-16.2); Immature Granulocytes % 0.2 %; Mean Corpuscular HGB Conc 33.7 g/dL (31.8-35.4); Mean Corpuscular Hemoglobin 30.0 pg (27.0-31.2); Mean Corpuscular Volume 89.0 fl (81-99); Nucleated Red Blood Cells % 0 %; Platelet Count 262 K/mm3 (142-424); Red Blood Count 4.73 M/mm3 (4.20-5.40); Red Cell Distribution Width-SD 40.7 fL; White Blood Count 12.7 K/mm3 (4.8-10.8)
--- NOTE | 2025-06-28 18:27 | ECG_ITS ---
APPROVED REPORT Exam: Resting ECG HR:83 bpm ECG Measurements Heart Rate 83 AXES IA 187 P 71 QRSd 89 QRS 89 QT 359 T 71 QTc 399 Conclusion SINUS RHYTHM NORMAL ECG Electronically signed by : CONNOR CURTIS, 06/29/2025 00:11:21
[2025-06-28] MEDS: 0.9 % SODIUM CHLORIDE 1000ML 1,000 ML 999 ML IV (18:31)
[2025-06-28 18:35] LABS: Albumin Level 4.4 g/dl (3.5-5.0); Chloride 108 mmol/L (98-107); Potassium 4.0 mmoL/L (3.5-5.1); Sodium 138 mmol/L (136-145)
[2025-06-28 18:37] LABS: Alanine Aminotransferase 16 U/L (12-78); Aspartate Amino Transferase 32 U/L (14-36); Blood Urea Nitrogen 13 mg/dl (7-17); Creatinine Clearance Estimated 197 mL/min (50-200); Creatinine,Serum 0.70 mg/dl (0.52-1.04); Estimated Glomerular Filt Rate 104 ml/min (>60); GFR (African American) 125 ML/MIN (>60); HCG Qualitative, Serum Negative (Negative)
[2025-06-28 18:37] LABS: Bacteria,Urine 1+ /lpf; RBC,Urine TNTC #/hpf (0-3)
[2025-06-28] MEDS: ACETAMINOPHEN 1,000MG/100ML VIAL 1000 MG IV (18:37)
[2025-06-28 18:38] LABS: Albumin/Globulin Ratio 1.3 (1.1-1.8); Alkaline Phosphatase 48 U/L (38-126); Anion Gap 10.0 mEq/L (5-15); Bilirubin,Total 0.4 mg/dl (0.2-1.3); Calcium 9.0 mg/dl (8.4-10.2); Carbon Dioxide 24 mmol/L (22.0-30.0); Globulin 3.3 g/dL (1.3-3.2); Glucose 95 mg/dl (74-100); Lipase 90 U/L (23-300); Magnesium 1.6 mg/dl (1.6-2.3); Total Protein,Serum 7.7 g/dl (6.3-8.2)
[2025-06-28 18:40] LABS: Activated Partial Thrombo Time 26.7 seconds (22.8-30.6); INR 0.92 (0.9-1.1); Prothrombin Time 10.3 seconds (10.1-12.5)
[2025-06-28] MEDS: IOPAMIDOL-370 (76%);100ML BOTTLE 75 ML IV (18:54)
[2025-06-28] MEDS: SODIUM CHLORIDE 0.9% 10ML SYR (RAD ONLY) 10 ML IV (18:54)
--- NOTE | 2025-06-28 19:06 | PC.NURSE ---
provided patient with warm blanket
[2025-06-28 20:51] VITALS: BP 146/93; PULSE 71; RESP 18; TEMP 36.8; O2SAT 98
== END 2025-06-28 20:52 | disposition home or self-care (01) ==
PROVIDERS: Nurse Practitioner; Emergency Provider Emergency Medicine
DX: R10.30 Lower abdominal pain, unspecified (principal); N93.9 Abnormal uterine and vaginal bleeding, unspecified; F17.200 Nicotine dependence, unspecified, uncomplicated
CPT/HCPCS: 74177; 80053; 81001; 83690; 83735; 84703; 85025; 85610; 85730; 93005; 96365; 96375; 99284; 99285; J0131; J7030; Q9967

== ENCOUNTER 2025-07-12 13:28 | Outpatient (CLI) | payer OTHER, SELFPAY ==
--- NOTE | 2025-07-12 13:30 | US_ITS ---
PROCEDURE: US TRANSVAGINAL CLINICAL INDICATION: pelvic pain, abnormal periods COMPARISON: CT CT ABDOMEN PELVIS W CON from 06/28/2025 FINDINGS: Transvaginal sonographic images of the pelvis were obtained. UTERUS: 8.4cm x 3.7 cmx 3.7 cm anteverted with a combined endometrial thickness of 7mm. There is a small echogenic foci adjacent to the endometrium. LEFT OVARY: 3.4cmx2.5cmx2.8cm with a volume of 11.9ml. There are multiple small peripheral follicles giving the ovary a polycystic appearance. There is a small hyperechoic area on the surface of the ovary. The largest follicle measures 0.67 cm RIGHT OVARY: 4.3cmx 2.2cmx2.0cm with a volume of 9.7ml. Multiple small peripheral follicles giving the ovary a polycystic appearance. There are 2 dominant follicles measuring 1.2 cm and 1.3 cm. Both ovaries are seen and appear normal. Doppler flow to both ovaries are seen. There is no fluid in the cul-de-sac. IMPRESSION: 1. Anteverted uterus normal in shape and size. The endometrium is normal. There is a small echogenic foci adjacent to the endometrium. 2. Both ovaries are seen and appear polycystic. There are small hyperechoic foci on the surface of the left ovary. This could possibly be old endometriosis scarring. 3. No fluid in the cul-de-sac. Dictated by: Mauro Gottlieb MD 07/12/2025 18:24 Mauro Gottlieb MD in OV 07/12/2025 18:24
== END 2025-07-12 23:59 | disposition home or self-care (01) ==
LOC: RAD 13:29
PROVIDERS: PCP Obstetrics & Gynecology; Visit Provider Obstetrics & Gynecology
DX: E28.2 Polycystic ovarian syndrome (principal); N85.4 Malposition of uterus; R93.89 Abnormal findings on diagnostic imaging of other specified body structures; R10.2 Pelvic and perineal pain; R39.15 Urgency of urination
CPT/HCPCS: 76830